=== PATIENT | male | born 1960 | race Caucasian/White ===

== ENCOUNTER 2022-01-26 14:32 | Inpatient (IN) | payer MEDICARE, OTHER ==
[~2022-01-26] VITALS: Ht 167.6 cm; Wt 81.6 kg
--- NOTE | 2022-01-26 15:03 | NUR ---
CHELSIE FROM [facility] FOR AGITATION. PT AAOX2, VSS. RR EVEN & UNLABORED. CALM & COOPERATIVE AT THIS TIME. PT SEEN & EVAL'D BY DR. MEAD. ANJELICA AT & WILL CONT TO MONITOR.
--- NOTE | 2022-01-26 15:40 | NUR ---
COVID SWAB DONE AND SENT TO LAB
[2022-01-26 16:17] LABS: BILIRUBIN,URINE NEGATIVE (NEGATIVE); COLOR,URINE YELLOW (YELLOW); LEUKOCYTE ESTERASE ,URINE NEGATIVE (NEGATIVE); NITRITE, URINE NEGATIVE (NEGATIVE); PROTEIN,URINE NEGATIVE (NEGATIVE); UGLUCOSE NEGATIVE (NEGATIVE); UROBILINOGEN,URINE 0.2 EU/dL (0.2)
[2022-01-26 16:56] LABS: BASOPHILS % (AUTO) 0.4 % (0.0-2.0); EOSINOPHILS % (AUTO) 1.1 % (0.0-6.0); HEMATOCRIT 46 % (39-51); HEMOGLOBIN 15.5 g/dL (13.5-17.5); LYMPHOCYTES # (AUTO) 1.3 K/uL (0.8-4.8); LYMPHOCYTES % (AUTO) 15.1 % (20.0-44.0); MEAN CORPUSCULAR HGB CONC 34 g/dl (31.0-36.0); MEAN CORPUSCULAR VOLUME 87 fL (80-96); MONOCYTES # (AUTO) 0.8 K/uL (0.1-1.30); MONOCYTES % (AUTO) 8.9 % (2.0-12.0); NEUTROPHILS # (AUTO) 6.5 K/uL (1.8-8.9); NEUTROPHILS % (AUTO) 74.5 % (43.0-81.0); PLATELET COUNT (AUTO) 153 K/uL (150-450); RED BLOOD CELL COUNT(AUTO) 5.32 MIL/uL (4.5-6.0); WHITE BLOOD COUNT (AUTO) 8.7 K/uL (4.3-11.0)
[2022-01-26 17:13] LABS: CALCIUM, SERUM 8.3 mg/dL (8.5-10.1); CARBON DIOXIDE 29 mmol/L (21-32); CHLORIDE 99 mmol/L (98-107); CREATININE 0.7 mg/dL (0.6-1.3); GLUCOSE 95 mg/dL (74-106); POTASSIUM 4.1 mmol/L (3.5-5.1); SODIUM SERUM 134 mmol/L (136-145); UREA NITROGEN, BLOOD 9 mg/dL (7-18)
[2022-01-26 17:19] LABS: ALANINE AMINOTRANSFERASE 19 U/L (12-78); ALBUMIN 3.3 g/dL (3.4-5.0); ALCOHOL, BLOOD < 3 mg/dL (0-0); ALKALINE PHOSPHATASE 79 U/L (46-116); ASPARTATE AMINOTRANSFERASE 16 U/L (15-37); BILIRUBIN,DIRECT 0.1 mg/dL (0.0-0.2); BILIRUBIN,TOTAL 0.4 mg/dL (0.2-1.0); TOTAL PROTEIN, SERUM 6.3 g/dL (6.4-8.2)
--- NOTE | 2022-01-26 18:35 | NUR ---
BED 212-A
--- NOTE | 2022-01-26 18:45 | NUR ---
REPORT GIVEN TO EMORY PANDYA FOR MEKA
--- NOTE | 2022-01-26 19:18 | NUR ---
PER LAB JOSE MANUEL COVID RESULT IS NEGATIVE, NURSE SUP MEMO AWARE
[2022-01-26] MEDS ORDERED: ACETAMINOPHEN 325 MG TABLET PO PRN (20:00)
[2022-01-26] MEDS ORDERED: ZOLPIDEM TARTRATE 5 MG TABLET PO PRN (20:00)
[2022-01-26] MEDS ORDERED: MAGNESIUM HYDROXIDE 30 ML UDC PO PRN (20:00)
[2022-01-26] MEDS ORDERED: MAG HYDROX/AL HYDROX/SIMETH 30 ML UDC PO PRN (20:00)
--- NOTE | 2022-01-26 20:01 | NUR ---
RN NOTES: REFUSED SKIN ASSESSMENT, AND REFUSED ACCU CHECK PT. REFUSED SKIN ASSESSMENT DUE TO UNCOOPERTIVE, AGGRESSIVE, NON REDIRECTABLE, ENCOURAGED X 3 PT. STRONGLY REFUSED, PER PT. STATED MY SKIN IS FINE , AND LIVE ME ALONE. PT. REUSED ACCU CHECK PT. REFUSED ACCU CHECK DUE TO UNCOOPERTIVE, AGGRESSIVE, NON REDIRECTABLE, ENCOURAGED X 3 PT. STRONGLY REFUSED, PER PT. MY BLOOD BS IS FINE, NO NEEDS TO BE CHECK , AND LIVE ME ALONE. Addendum: 01/27/22 at 0005 by CHRISTIANO IQBAL RN CORRECTION NOTES : PT. REFUSED SKIN ASSESSMENT, AND REFUSED ACCU CHECK PT. REFUSED SKIN ASSESSMENT DUE TO UNCOOPERTIVE, AGGRESSIVE, NON REDIRECTABLE, ENCOURAGED X 3 PT. STRONGLY REFUSED, PER PT. STATED MY SKIN IS FINE , AND LEAVE ME ALONE. PT. REUSED ACCU CHECK CORRECTION NOTE: PT. REFUSED ACCU CHECK DUE TO UNCOOPERTIVE, AGGRESSIVE, NON REDIRECTABLE, ENCOURAGED X 3 PT. STRONGLY REFUSED, PER PT. MY BLOOD BS IS FINE, NO NEEDS TO BE CHECK , AND LEAVE ME ALONE.
[2022-01-26] MEDS ORDERED: BLOOD SUGAR DIAGNOSTIC 1 EACH STRIP IN ONE (21:00)
[2022-01-26] MEDS: LORAZEPAM 1 MG TABLET PO PRN (21:10)
--- NOTE | 2022-01-26 21:12 | NUR ---
RN NOTES ANXIETY PT. C/O FEELING ANXIOUS, PACING IN HALLWAY , PARANOID , UNCOOPERTIVE ,PRN ATIVAN 1 MG PO GIVEN PER PT. REQUEST, WILL CONTINUE TO MONITOR.
[2022-01-26 22:00] VITALS: BP 123/76
[2022-01-26] MEDS ORDERED: DOCU-141 PO (22:46)
[2022-01-26] MEDS ORDERED: CHOL100062 PO (22:47)
[2022-01-26] MEDS ORDERED: DIVA500T54 PO (22:48)
[2022-01-26] MEDS ORDERED: MULT-754 PO (22:49)
[2022-01-26] MEDS ORDERED: VENL37.55 PO (22:50)
[2022-01-26] MEDS ORDERED: GABA-532 PO (22:52)
[2022-01-26] MEDS ORDERED: ARIP10TA9 PO (22:54)
--- NOTE | 2022-01-26 23:57 | NUR ---
RN NOTES : ADMISSION NOTES: ADMITTED THIS 61Y/O MALE PATIENT ADMIT FROM [facility] , INITIALLY FROM [facility] /INTIALLY FROM [facility] . ADMITTED TO 5150 HOLD PER HOLD GRAVELY DISABLE , DUE TO AGGRESSIVE BEHAVIOR AND NON COMPLIANT WITH CARE, UPON FACE TO FACE ASSESSMENT PATIENT IS A&O 2, ANXIOUS, DEPRESSED ,EASILY AGITATED , CONFUSED ,DISORGNIZED, DISHELVED, BLUNTED, FLAT ,NON-CONGRUENT UNCOOPERTIVE,POOR DECISION MAKING,DENIES SI /HI AT THIS TIME, PT. IS POOR HISTORIAN, POOR INSIGHT ,POOR JUDGEMENT , BOTH MD AWARE AND NOTIFIED OF THE ADMISSION, BELONGINGS CONTRABAND WERE DONE , PT. REFUSED SIGNS ADMISSION CONSENT PAPER DUE TO ANXIOUS,CONFUSED ,ENCOURAGED PT. TO TAKE SHOWER, REFUSED SKIN ASSESSMENT AND BLOOD SUGAR CHECK ,ENCOURAGED X3 BUT PT. STRONGLY REFUSED, PT. RIGHTS DISCUSS BY IMPORT CLERK , PROVIDE THE PT. WITH HANDBOOK, AND MEDICATIONS GUIDE, ENVIRONMENTAL SAFETY CHECK DONE, ENCOURAGED PT. VERBALIZED ANY FEELING CONCERN TO STAFF, ORIENT TO UNIT POLICY, NO ACUTE DISTRESS NOTED,VITAL SIGNS WNL ,DENIES ANY PAIN AT THIS TIME,WILL CONTINUE TO MONITOR FOR Q15 SAFETY AND BEHAVIOR.
[2022-01-27] MEDS: DOCUSATE SODIUM 100 MG CAPSULE PO SCH (08:36)
[2022-01-27] MEDS: MULTIVITAMINS,THERAGRAN 1 UDTAB TABLET PO SCH (08:37)
[2022-01-27] MEDS: NICOTINE PATCH (21MG) 21 MG PATCH.TD24 TD SCH (08:37)
[2022-01-27] MEDS: CHOLECALCIFEROL 1,000 UNIT TABLET (VIT D3) PO SCH (08:37)
[2022-01-27] MEDS ORDERED: GABAPENTIN 300 MG CAPSULE PO SCH (09:00)
--- NOTE | 2022-01-27 10:07 | NUR ---
Treatment Plan: Pt refused to sign treatment plan and appeared angry.
--- NOTE | 2022-01-27 10:07 | NUR ---
GALINA Clinical Note: Pt placed on a 5150 hold for GD. Per hold, pt was aggressive at his facility and was non-complaint with care. Pt currently resides at [facility], located at [address] [place] [address] ([phone]). GALINA contacted Shiloh fox from [place] who stated that pt is welcomed back. Pt does not have any supportive contact at this time.
--- NOTE | 2022-01-27 10:07 | NUR ---
GALINA Initial Discharge Plan: Pt currently resides at [facility], located at [place] [address] ([phone]). GALINA contacted Shiloh fox from [place] who stated that pt is welcomed back. Pt does not have any supportive contact at this time. GALINA will work with the MD and pt to help coordinate appropriate discharge.
[2022-01-27] MEDS: GABAPENTIN 300 MG CAPSULE PO SCH ×3 (10:30→17:00)
[2022-01-27] MEDS: OLANZAPINE ZYDIS 5 MG TAB.RAPDIS PO SCH ×2 (10:30→17:00)
[2022-01-27] MEDS: DIVALPROEX SODIUM 250 MG TABLET.DR PO SCH ×2 (13:00→17:00)
--- NOTE | 2022-01-27 17:16 | NUR ---
GPS/RN PT REFUSED ALL PO MEDS TODAY OFFERED ON NUMEROUS OCCASIONS. FIXATED ON SMOKING, REFUSED NICOTIN PATCH WELL
--- NOTE | 2022-01-27 19:30 | NUR ---
GPS RN NOTE, RECEIVED PATIENT AWAKE AND IN BED, NO S/S OR COMPLAINTS OF PAIN AT THIS TIME. PATIENT IS DISPLAYING NO S/S OF APPARENT DISTRESS AT THIS TIME. PATIENT BREATHING IS UNLABORED WITH EQUAL RISE AND FALL OF THE CHEST. PATIENT IS ALERT AND ORIENTED X 2-3 ON ROOM AIR. PATIENT IS REFUSING MEDICATIONS, UNPREDICTABLE, DISORGANIZED, FORGETFUL, AND UNCOOPERATIVE. PATIENT DENIES SUICIDAL AND HOMICIDAL IDEATIONS AT THIS TIME. PATIENT ASSISTED WITH TURNING AND REPOSITIONING Q2HR AND PRN FOR COMFORT AND CIRCULATION. PATIENT HAS NO NEEDS AT THIS TIME. PATIENT EDUCATED ON THE USE OF THE CALL SANCHEZ. PATIENT BED SIDE RAILS UP X 2 FOR SAFETY. PATIENT BED IS LOCKED, LOW, WITH BED ALARM ON. WILL CONTINUE TO MONITOR THIS PATIENT Q15 MINUTES WITH THE HELP OF STAFF TO MAINTAIN SAFETY.
[2022-01-28] MEDS: OLANZAPINE ZYDIS 5 MG TAB.RAPDIS PO SCH ×2 (08:03→16:09)
[2022-01-28] MEDS: DIVALPROEX SODIUM 250 MG TABLET.DR PO SCH ×3 (08:03→16:09)
[2022-01-28] MEDS: MULTIVITAMINS,THERAGRAN 1 UDTAB TABLET PO SCH (08:08)
[2022-01-28] MEDS: GABAPENTIN 300 MG CAPSULE PO SCH ×2 (08:08→11:59)
[2022-01-28] MEDS: CHOLECALCIFEROL 1,000 UNIT TABLET (VIT D3) PO SCH (08:08)
[2022-01-28] MEDS: NICOTINE PATCH (21MG) 21 MG PATCH.TD24 TD SCH (08:08)
[2022-01-28] MEDS: DOCUSATE SODIUM 100 MG CAPSULE PO SCH (08:08)
--- NOTE | 2022-01-28 09:00 | NUR ---
RN NOTE- PT ALERT ORIENTED TO PERSON PLACE, RESTLESS PACING POOR IMPULSE CONTROL, OPPOSITIONAL TO CARE, NOT REALLY DIRECTABLE, INTRUSIVE, TAKES FOOD AND DRINKS FROM OTHER PATIENTS, REDIRECTED, REPEATEDLY. TOOK ZYPREXA AND DEPAKOTE W DR DUNLAP AT BEDSIDE. REFUSED OTHER MEDS.
--- NOTE | 2022-01-28 11:20 | NUR ---
RN NOTE- PT W CONTINUED COUGH. LONG TIME SMOKER. PILOT MANAGER ROMAIN NOTIFIED. REQUESTED CXR AND ROBITUSSIN DM 5ML Q4H PRN. ORDERED
[2022-01-28] MEDS ORDERED: GUAIFENESIN/D-METHORPHAN HB 5 ML UDC PO PRN (12:00)
[2022-01-28] MEDS: GABAPENTIN 100 MG CAPSULE PO SCH (16:09)
--- NOTE | 2022-01-28 17:07 | NUR ---
RN NOTE- CXR UNREMARKABLE. NO ACUTE FINDINGS
[2022-01-28] MEDS: LORAZEPAM 1 MG TABLET PO PRN (20:23)
--- NOTE | 2022-01-28 20:23 | NUR ---
RN NOTES: ANXIETY PT. C/O FEELING ANXIOUS, PACING IN HALLWAY , PARANOID , UNCOOPERTIVE ,PRN ATIVAN 1 MG PO GIVEN PER PT. REQUEST, WILL CONTINUE TO MONITOR.
[2022-01-29 08:00] VITALS: BP 78/58
[2022-01-29] MEDS: DOCUSATE SODIUM 100 MG CAPSULE PO SCH (09:00)
[2022-01-29] MEDS: NICOTINE PATCH (21MG) 21 MG PATCH.TD24 TD SCH (09:00)
[2022-01-29] MEDS: MULTIVITAMINS,THERAGRAN 1 UDTAB TABLET PO SCH (09:00)
--- NOTE | 2022-01-29 09:00 | NUR ---
RN NOTE- NO REAL CHANGE PT ALERT ORIENTED TO PERSON PLACE, RESTLESS PACING POOR IMPULSE CONTROL, OPPOSITIONAL TO CARE, NOT REALLY DIRECTABLE, INTRUSIVE, TAKES FOOD AND DRINKS FROM OTHER PATIENTS, REDIRECTED, REPEATEDLY.
[2022-01-29] MEDS: DIVALPROEX SODIUM 250 MG TABLET.DR PO SCH ×3 (09:32→16:10)
[2022-01-29] MEDS: OLANZAPINE ZYDIS 5 MG TAB.RAPDIS PO SCH ×2 (09:32→16:10)
[2022-01-29] MEDS: CHOLECALCIFEROL 1,000 UNIT TABLET (VIT D3) PO SCH (09:32)
[2022-01-29] MEDS: GABAPENTIN 100 MG CAPSULE PO SCH ×3 (09:32→16:10)
--- NOTE | 2022-01-29 10:22 | NUR ---
RN NOTE- PT PROFANE, TAKING FOOD, POSTURING AGGRESSIVELY, THREATENING STAFF. DR DUNLAP ORDERED HALDOL 5 MG BENADRYL 25MG IM STAT
[2022-01-29] MEDS ORDERED: diphenhydrAMINE HCL 50 MG/ML VIAL IM ONE (10:30)
[2022-01-29] MEDS ORDERED: HALOPERIDOL LACTATE INJ 5 MG/ML VIAL IM ONE (10:30)
--- NOTE | 2022-01-29 12:00 | NUR ---
RN NOTE- PT CALMER THOUGH STILL PACING. HAD PT EAT LUNCH IN ROOM AND KEPT HIM THERE UNTIL TRAYS COLLECTED TO PREVENT HIM FROM TAKING OTHERS FOOD.
[2022-01-29] MEDS: LORAZEPAM 1 MG TABLET PO PRN (12:06)
--- NOTE | 2022-01-29 14:23 | NUR ---
RN NOTE- PT PACING CONTINUALLY ASKING FOR COFFEE, FOOD, CIGARETTES, DISRUPTIVE PERIODICALLY BECOMING PROFANE AND ANTAGONISTIC W FEMALE STAFF. MONITORING BEHAVIOR
--- NOTE | 2022-01-29 20:00 | NUR ---
RN NOTE PATIENT REFUSED SKIN ASSESSMENT.
[2022-01-30] MEDS: DIVALPROEX SODIUM 250 MG TABLET.DR PO SCH ×3 (08:30→16:16)
[2022-01-30] MEDS: GABAPENTIN 100 MG CAPSULE PO SCH ×3 (08:30→16:16)
[2022-01-30] MEDS: CHOLECALCIFEROL 1,000 UNIT TABLET (VIT D3) PO SCH (08:30)
[2022-01-30] MEDS: OLANZAPINE ZYDIS 5 MG TAB.RAPDIS PO SCH ×3 (08:30→16:16)
[2022-01-30] MEDS: MULTIVITAMINS,THERAGRAN 1 UDTAB TABLET PO SCH (08:30)
[2022-01-30] MEDS: DOCUSATE SODIUM 100 MG CAPSULE PO SCH (08:30)
[2022-01-30] MEDS: NICOTINE PATCH (21MG) 21 MG PATCH.TD24 TD SCH (08:41)
--- NOTE | 2022-01-30 13:00 | NUR ---
RN NOTE Patient noted to have non-productive cough, Davey Waggoner DNP notified and ordered CXR. Patient refused CXR, stated that if he's not allowed to smoke a cigarette, he will note do the CXR. Ordering Md notified.
--- NOTE | 2022-01-30 18:05 | NUR ---
RN NOTE Patient was reality oriented, encouraged to verbalize thoughts, feelings and needs with staff, importance of medication compliance, patient was invited to participate in group activities, to socialize with peers and staff, safe and therapeutic environment was provided. Patient kept pacing around and kept asking for juice and milk. Also would ask for extra food. Patient compliant with medication. Will continue to monitor until change of shift. Addendum: 01/31/22 at 1545 by DANIELLA QUIJANO RN WRONG CHARTING WRONG PATIENT
--- NOTE | 2022-01-31 08:30 | NUR ---
GPS RN NOTE Patient was reality oriented, encouraged to verbalize thoughts, feelings and needs with staff, importance of medication compliance, patient was not participate in group activities, to socialize with peers and staff, safe and therapeutic environment was provided. Patient kept asking about coffea and cream . Patient took medication with difficulty, have tendency to refused Meds and noncompliant with care. Will continue to monitor closely
[2022-01-31] MEDS: MULTIVITAMINS,THERAGRAN 1 UDTAB TABLET PO SCH (09:15)
[2022-01-31] MEDS: OLANZAPINE ZYDIS 5 MG TAB.RAPDIS PO SCH ×2 (09:15→16:16)
[2022-01-31] MEDS: DIVALPROEX SODIUM 250 MG TABLET.DR PO SCH ×3 (09:15→16:16)
[2022-01-31] MEDS: GABAPENTIN 100 MG CAPSULE PO SCH ×3 (09:15→16:16)
[2022-01-31] MEDS: NICOTINE PATCH (21MG) 21 MG PATCH.TD24 TD SCH (09:15)
[2022-01-31] MEDS: CHOLECALCIFEROL 1,000 UNIT TABLET (VIT D3) PO SCH (09:15)
[2022-01-31] MEDS: DOCUSATE SODIUM 100 MG CAPSULE PO SCH (09:15)
--- NOTE | 2022-01-31 14:26 | NUR ---
gps rn note strongly refused to do chest xay, will cont to encourage it
[2022-01-31 15:54] VITALS: BP 148/92
--- NOTE | 2022-01-31 18:34 | NUR ---
GPS RN NOTE RESTING COMFORTABLY IN BED , ALL NEEDS ATTENDED ,NOT IN DISTRESS AT THIS TIME
[2022-02-01 08:00] VITALS: BP 122/78
[2022-02-01] MEDS: NICOTINE PATCH (21MG) 21 MG PATCH.TD24 TD SCH ×2 (09:00→09:19)
[2022-02-01] MEDS ORDERED: HALOPERIDOL LACTATE INJ 5 MG/ML VIAL IM ONE (09:00)
[2022-02-01] MEDS ORDERED: diphenhydrAMINE HCL 50 MG/ML VIAL IM ONE (09:10)
[2022-02-01] MEDS: MULTIVITAMINS,THERAGRAN 1 UDTAB TABLET PO SCH (09:19)
[2022-02-01] MEDS: DIVALPROEX SODIUM 250 MG TABLET.DR PO SCH ×3 (09:19→17:53)
[2022-02-01] MEDS: DOCUSATE SODIUM 100 MG CAPSULE PO SCH (09:19)
[2022-02-01] MEDS: GABAPENTIN 100 MG CAPSULE PO SCH ×3 (09:20→17:53)
[2022-02-01] MEDS: CHOLECALCIFEROL 1,000 UNIT TABLET (VIT D3) PO SCH (09:20)
--- NOTE | 2022-02-01 09:20 | NUR ---
NURSE NOTE: PT ANGRY, PARANOID, FOLLOWING DR CARRANZA. DR DUNLAP ORDERED HALDOL 5MG AND BENADRYL 25MG. PT REQUESTED THE INJECTION AND VOLUNTARILY ACCEPTED THE INJECTION. WILL CONT TO MONITOR.
[2022-02-01] MEDS: OLANZAPINE ZYDIS 5 MG TAB.RAPDIS PO SCH ×2 (09:31→17:54)
--- NOTE | 2022-02-01 10:00 | NUR ---
NURSE NOTE: PT CALM AT THIS TIME. BREATHING EVEN AND UNLABORED. HALDOL AND BENADRYL INJECTIONS EFFECTIVE AT THIS TIME. WILL CONT TO MONITOR.
--- NOTE | 2022-02-01 11:16 | NUR ---
SW Note: SW attempted to meet with pt to conduct brief therapy. Pt appeared to be verbally aggressive and this telegraphic typewriter operator chief was unable to conduct therapy at this time.
--- NOTE | 2022-02-01 11:16 | NUR ---
Social Work Note/Substance Abuse Intervention: Patient was provided with a brief substance abuse intervention and referred to [facility] ([phone]), [facility] ([phone]), and [facility] ([phone]) for smoking.
[2022-02-01] MEDS ORDERED: PHENYLEPHRINE/SHK LV/MO/PET,WH 30 GM TUBE RC PRN (19:00)
--- NOTE | 2022-02-01 19:00 | NUR ---
NURSE NOTE: PT HAD RECTAL BLEEDING, HEMORRHOID VISIBLE. DR JEREZ NOTIFIED AND ORDERED PREPARATION H AND MIRALAX. WILL CONT TO MONITOR.
[2022-02-01 20:07] VITALS: BP 136/96
[2022-02-01] MEDS: POLYETHYLENE GLYCOL 3350 17 GM POWD.PACK PO SCH (21:06)
[2022-02-02 08:00] VITALS: BP 124/74
[2022-02-02] MEDS: MULTIVITAMINS,THERAGRAN 1 UDTAB TABLET PO SCH (08:43)
[2022-02-02] MEDS: DOCUSATE SODIUM 100 MG CAPSULE PO SCH (08:43)
[2022-02-02] MEDS: DIVALPROEX SODIUM 250 MG TABLET.DR PO SCH ×3 (08:43→16:57)
[2022-02-02] MEDS: CHOLECALCIFEROL 1,000 UNIT TABLET (VIT D3) PO SCH (08:43)
[2022-02-02] MEDS: OLANZAPINE ZYDIS 5 MG TAB.RAPDIS PO SCH ×2 (08:44→16:57)
[2022-02-02] MEDS: GABAPENTIN 100 MG CAPSULE PO SCH ×3 (08:44→16:57)
--- NOTE | 2022-02-02 11:24 | NUR ---
Court Notification: Pt does not have any supportive contact to notify of [phone].
--- NOTE | 2022-02-02 14:31 | NUR ---
SW Court Hearing: Patient's court hearing for 7200 was today and it was upheld for GD.
[2022-02-02 16:00] VITALS: BP 130/75
--- NOTE | 2022-02-02 18:04 | NUR ---
RN-NOTES PATIENT VISIBLE IN THE UNIT,A/O X2, NOTED WITH EASILY ANGRY,DEMANDING AND NEEDY BEHAVIOR.SELECTIVE WITH MEDICATION . REFUSED NICOTINE PATCH DESPITE EXPLANATIONS RISK AND BENEFITS.AMBULATORY STEADY GAIT. ALL NEEDS ATTENDED AND ANTICIPATED.WILL CONT. MONITORING FOR SAFETY AND BEHAVIOR.WILL ENDORSE TO INCOMING NURSE FOR CONTINUITY OF CARE.
--- NOTE | 2022-02-02 19:30 | NUR ---
PATIENT RECEIVED ASLEEP, EASILY AWAKENED BY CALLING HIS NAME. A/O X2, NOTED WITH EASILY ANGRY,DEMANDING AND NEEDY BEHAVIOR. AMBULATORY STEADY GAIT. PROVIDED FOOD AND JUICE REQUESTED. WILL CONT MONITORING FOR SAFETY AND BEHAVIOR. WILL PLAN OF CARE.
[2022-02-02 20:11] VITALS: BP 112/76
[2022-02-02] MEDS: POLYETHYLENE GLYCOL 3350 17 GM POWD.PACK PO SCH (21:36)
--- NOTE | 2022-02-03 06:33 | NUR ---
PATIENT ASLEEP IN BED, EASILY AWAKENED BY CALLING HIS NAME. A/O X2, NOTED WITH EASILY ANGRY,DEMANDING AND NEEDY BEHAVIOR. AMBULATORY STEADY GAIT. PROVIDED FOOD AND JUICE REQUESTED. DUE MEDS GIVEN ORDERED. NEEDS ATTENDED. SAFETY MEASURES MAINTAINED. WILL ENDORSE TO NEXT SHIFT NURSE FOR CONTINUITY OF CARE.
[2022-02-03] MEDS: OLANZAPINE ZYDIS 5 MG TAB.RAPDIS PO SCH ×2 (08:28→16:10)
[2022-02-03] MEDS: DOCUSATE SODIUM 100 MG CAPSULE PO SCH (08:28)
[2022-02-03] MEDS: CHOLECALCIFEROL 1,000 UNIT TABLET (VIT D3) PO SCH (08:28)
[2022-02-03] MEDS: GABAPENTIN 100 MG CAPSULE PO SCH ×3 (08:28→16:10)
[2022-02-03] MEDS: MULTIVITAMINS,THERAGRAN 1 UDTAB TABLET PO SCH (08:28)
[2022-02-03] MEDS: DIVALPROEX SODIUM 250 MG TABLET.DR PO SCH ×3 (08:34→16:10)
[2022-02-03] MEDS: NICOTINE PATCH (21MG) 21 MG PATCH.TD24 TD SCH (08:34)
[2022-02-03] MEDS: LORAZEPAM 1 MG TABLET PO PRN (09:13)
--- NOTE | 2022-02-03 09:13 | NUR ---
RN-NOTES NOTED PATIENT WITH INTRUSIVE ,DEMANDING AND IRRITABLE BEHAVIOR. REDIRECTED AND ATIVAN 1MG P.O GIVEN PRN ORDER. WILL CONT. MONITORING FOR SAFETY AND BEHAVIOR.
--- NOTE | 2022-02-03 09:15 | NUR ---
RN-NOTES TOSHIA DE ANDA 500MG P.O WAS ALREADY ADMINISTERED AT 0834 AM BY THE REFINER OPERATOR.
--- NOTE | 2022-02-03 19:08 | NUR ---
RN-NOTES PATIENT VISIBLE IN THE UNIT,A/O X2, NOTED WITH EASILY ANGRY,DEMANDING AND NEEDY BEHAVIOR.SELECTIVE WITH MEDICATION . REFUSED NICOTINE PATCH DESPITE EXPLANATIONS RISK AND BENEFITS.FOCUS ON COFFEE AND SMOKING.NEEDS FREQUENT REDIRECTIONS .AMBULATORY STEADY GAIT. ALL NEEDS ATTENDED AND ANTICIPATED.WILL CONT. MONITORING FOR SAFETY AND BEHAVIOR.WILL ENDORSE TO INCOMING NURSE FOR CONTINUITY OF CARE.
--- NOTE | 2022-02-03 19:30 | NUR ---
GPS RN NOTE, RECEIVED PATIENT AWAKE AND IN BED, NO S/S OR COMPLAINTS OF PAIN AT THIS TIME. PATIENT IS DISPLAYING NO S/S OF APPARENT DISTRESS AT THIS TIME. PATIENT BREATHING IS UNLABORED WITH EQUAL RISE AND FALL OF THE CHEST. PATIENT IS ALERT AND ORIENTED X 2-3 ON ROOM AIR. PATIENT IS COMPLAINT MEDICATIONS, UNPREDICTABLE, DISORGANIZED, FORGETFUL, AND COOPERATIVE. PATIENT DENIES SUICIDAL AND HOMICIDAL IDEATIONS AT THIS TIME. PATIENT ASSISTED WITH TURNING AND REPOSITIONING Q2HR AND PRN FOR COMFORT AND CIRCULATION. PATIENT HAS NO NEEDS AT THIS TIME. PATIENT EDUCATED ON THE USE OF THE CALL SANCHEZ. PATIENT BED SIDE RAILS UP X 2 FOR SAFETY. PATIENT BED IS LOCKED, LOW, WITH BED ALARM ON. WILL CONTINUE TO MONITOR THIS PATIENT Q15 MINUTES WITH THE HELP OF STAFF TO MAINTAIN SAFETY.
[2022-02-03 20:00] VITALS: BP 154/109
[2022-02-03] MEDS: POLYETHYLENE GLYCOL 3350 17 GM POWD.PACK PO SCH (21:17)
--- NOTE | 2022-02-03 21:17 | NUR ---
GPS RN NOTE, PATIENT REFUSED MIRALAX 17 GM PO HS. OFFERED MIRALAX THREE TIMES AND STILL PATIENT REFUSED STATING, " NO LEAVE ME ALONE I DON'T WANT THAT MEDICATION ". EDUCATED PATIENT ON THE RISKS AND BENEFITS OF TAKING AND REFUSING MIRALAX. WILL CONTINUE TO MONITOR THIS PATIENT WITH THE HELP OF STAFF.
[2022-02-04] MEDS: DIVALPROEX SODIUM 250 MG TABLET.DR PO SCH (08:24)
[2022-02-04] MEDS: OLANZAPINE ZYDIS 5 MG TAB.RAPDIS PO SCH ×2 (08:24→16:19)
[2022-02-04] MEDS: DOCUSATE SODIUM 100 MG CAPSULE PO SCH (08:24)
[2022-02-04] MEDS: MULTIVITAMINS,THERAGRAN 1 UDTAB TABLET PO SCH (08:24)
[2022-02-04] MEDS: GABAPENTIN 100 MG CAPSULE PO SCH ×3 (08:24→16:18)
[2022-02-04] MEDS: CHOLECALCIFEROL 1,000 UNIT TABLET (VIT D3) PO SCH (08:24)
[2022-02-04] MEDS: NICOTINE PATCH (21MG) 21 MG PATCH.TD24 TD SCH (08:27)
--- NOTE | 2022-02-04 09:15 | NUR ---
RN Notes: Received pt. asleep in bed, breathing is even and unlabored. Ate 25% for breakfast and refused for v/s checked. Pt. is unkempt, disheveled and guarded upon approached. Pt refused Nicotine patch and compliant on the rest of the meds. Encouraged to verbalize feelings and motivated to take shower. Needs attended and will continue to monitor for safety.
--- NOTE | 2022-02-04 14:33 | NUR ---
Dr. Mcgill in the unit and changed the order of Depakote to Depakane 500 mg BID and to do Depakote level on Sunday.
[2022-02-04 16:00] VITALS: BP 133/88
[2022-02-04] MEDS: VALPROIC ACID 250 MG/5 ML UDC PO SCH (16:19)
[2022-02-04] MEDS: LORAZEPAM 1 MG TABLET PO PRN (19:38)
--- NOTE | 2022-02-04 19:39 | NUR ---
RN NOTES: PT. C/O FEELING RESTLESS , ANXIOUS , PARANOID, NONREDIRECTABLE PRN ATIVAN 1 MG PO GIVEN PER PT. REQUEST, WILL CONTINUE TO MONITOR.
[2022-02-04 20:00] VITALS: BP 128/74
--- NOTE | 2022-02-04 20:06 | NUR ---
RN NOTES: PT. AWAKE ALERT IN HIS ROOM, NO S/SX OF ACUTE DISTRESS NOTED, ANXIOUS, EASILY AGITATED, NEEDY ,INAPPROPRIATE ANSWER TO QUESTIONS, PARANOID, UNCOOPERTIVE GUARDED, NEEDS FREQUENT REDIRECTION, FOCUS ON FOOD. DENIES SI/HI AT THIS TIME.ENCOURAGE TO VERBALIZED ANY FEELING OR CONCERN, SAFETY MEASURES IN PLACE. WILL CONTINUE TO MONITOR Q15MIN ROUNDS FOR SAFETY AND BEHAVIOR.
[2022-02-04] MEDS: POLYETHYLENE GLYCOL 3350 17 GM POWD.PACK PO SCH (22:05)
[2022-02-05] MEDS: NICOTINE PATCH (21MG) 21 MG PATCH.TD24 TD SCH (08:19)
[2022-02-05] MEDS: MULTIVITAMINS,THERAGRAN 1 UDTAB TABLET PO SCH (08:22)
[2022-02-05] MEDS: DOCUSATE SODIUM 100 MG CAPSULE PO SCH (08:22)
[2022-02-05] MEDS: OLANZAPINE ZYDIS 5 MG TAB.RAPDIS PO SCH ×2 (08:22→16:10)
[2022-02-05] MEDS: CHOLECALCIFEROL 1,000 UNIT TABLET (VIT D3) PO SCH (08:22)
[2022-02-05] MEDS: GABAPENTIN 100 MG CAPSULE PO SCH ×3 (08:22→16:09)
[2022-02-05] MEDS: VALPROIC ACID 250 MG/5 ML UDC PO SCH ×2 (08:23→16:09)
[2022-02-05 16:00] VITALS: BP 147/95
[2022-02-05] MEDS: POLYETHYLENE GLYCOL 3350 17 GM POWD.PACK PO SCH (21:20)
--- NOTE | 2022-02-05 22:31 | NUR ---
GPS NOTE PT RECEIVED IN BED, AWAKE, A&O X2. NO S/S OF RESP DISTRESS, NO SOB OR COUGH, NON-LABORED AND EQUAL BREATHING. PT COMPLIANT WITH MEDICATIONS; COOPERATIVE. PT NOTED TO BE AMBULATORY WITH STEADY GAIT. PT APPEARS CALM AT THE MOMENT WITH NO SIGNS OF EMOTIONAL DISTRESS, BUT IS NEEDY AND CONSTANTLY ASKING FOR SNACKS/DRINKS. NEED MINIMAL ASSIST WITH ADL'S. ALL NEEDS ATTENDED AND ANTICIPATED. WILL CONTINUE TO MONITOR THROUGHOUT THE NIGHT Q15MIN FOR SAFETY AND BEHAVIOR.
--- NOTE | 2022-02-06 06:56 | NUR ---
GPS NOTE PT REMAINS IN BED, ASLEEP BUT EASILY AROUSABLE, A&O X2. NO S/S OF RESP DISTRESS, NO SOB OR COUGH, NON-LABORED AND EQUAL BREATHING. PT COMPLIANT WITH MEDICATIONS; COOPERATIVE. NO EMOTIONAL OUTBURSTS DURING THE NIGHT AND WAS CALM AND COOPERATIVE. CONTINUED TO BE NEEDY, ASKING FOR SNACKS/DRINKS. NEED MINIMAL ASSIST WITH ADL'S. ALL NEEDS ATTENDED. ALL DUE MEDS ADMINISTERED DURING THE NIGHT. WILL ENDORSE TO DAYSHIFT NURSE TO CONTINUE CARE.
[2022-02-06] MEDS: OLANZAPINE ZYDIS 5 MG TAB.RAPDIS PO SCH ×2 (08:56→17:27)
[2022-02-06] MEDS: NICOTINE PATCH (21MG) 21 MG PATCH.TD24 TD SCH (08:56)
[2022-02-06] MEDS: CHOLECALCIFEROL 1,000 UNIT TABLET (VIT D3) PO SCH (08:56)
[2022-02-06] MEDS: DOCUSATE SODIUM 100 MG CAPSULE PO SCH (08:56)
[2022-02-06] MEDS: GABAPENTIN 100 MG CAPSULE PO SCH ×3 (08:56→17:27)
[2022-02-06] MEDS: MULTIVITAMINS,THERAGRAN 1 UDTAB TABLET PO SCH (08:58)
[2022-02-06] MEDS: VALPROIC ACID 250 MG/5 ML UDC PO SCH ×2 (09:02→17:27)
[2022-02-06] MEDS: POLYETHYLENE GLYCOL 3350 17 GM POWD.PACK PO SCH (21:40)
[2022-02-07 08:00] VITALS: BP 109/59
[2022-02-07] MEDS: DOCUSATE SODIUM 100 MG CAPSULE PO SCH (08:56)
[2022-02-07] MEDS: GABAPENTIN 100 MG CAPSULE PO SCH ×3 (08:56→17:19)
[2022-02-07] MEDS: NICOTINE PATCH (21MG) 21 MG PATCH.TD24 TD SCH (08:56)
[2022-02-07] MEDS: OLANZAPINE ZYDIS 5 MG TAB.RAPDIS PO SCH ×2 (08:56→17:19)
[2022-02-07] MEDS: CHOLECALCIFEROL 1,000 UNIT TABLET (VIT D3) PO SCH (08:56)
[2022-02-07] MEDS: VALPROIC ACID 250 MG/5 ML UDC PO SCH ×2 (08:57→17:19)
[2022-02-07] MEDS: MULTIVITAMINS,THERAGRAN 1 UDTAB TABLET PO SCH (08:58)
[2022-02-07] MEDS: POLYETHYLENE GLYCOL 3350 17 GM POWD.PACK PO SCH (21:04)
[2022-02-08 08:00] VITALS: BP 110/79
--- NOTE | 2022-02-08 08:09 | NUR ---
GALINA EARLY DISCHARGE ENTRY (02/10/2022): Patient will be discharged to [facility] facility, [facility] located at [address] [place] [phone] ([phone]). Please arrange ambulance transportation at 1PM. organic lab worker spoke with Shiloh garciaer ([phone]), who stated patient will be accepted at the facility today. Patient does not have any supportive contact. Patient is alert and oriented x2 and is unable to plan for self-care. Patient denies any suicidal or homicidal ideation. Patient is aware and agreeable with discharge plans. Patient will follow-up at the facility with Dr. Johnson (psychiatrist) [address] [address]; ([phone]) and (Field Administrator) Dr. De [address] [facility] [id number], [place] [address]; ([phone]).
[2022-02-08] MEDS: DOCUSATE SODIUM 100 MG CAPSULE PO SCH (08:30)
[2022-02-08] MEDS: CHOLECALCIFEROL 1,000 UNIT TABLET (VIT D3) PO SCH (08:30)
[2022-02-08] MEDS: VALPROIC ACID 250 MG/5 ML UDC PO SCH ×2 (08:30→16:27)
[2022-02-08] MEDS: GABAPENTIN 100 MG CAPSULE PO SCH ×3 (08:30→16:28)
[2022-02-08] MEDS: NICOTINE PATCH (21MG) 21 MG PATCH.TD24 TD SCH (08:30)
[2022-02-08] MEDS: OLANZAPINE ZYDIS 5 MG TAB.RAPDIS PO SCH ×2 (08:31→16:28)
[2022-02-08] MEDS: MULTIVITAMINS,THERAGRAN 1 UDTAB TABLET PO SCH (08:31)
--- NOTE | 2022-02-08 11:52 | NUR ---
GILACO: PT REFUSED VPA.
[2022-02-08 16:00] VITALS: BP 119/81
[2022-02-08 20:04] VITALS: BP 135/90
[2022-02-08] MEDS: POLYETHYLENE GLYCOL 3350 17 GM POWD.PACK PO SCH (21:46)
[2022-02-09 08:00] VITALS: BP 162/79
[2022-02-09] MEDS: MULTIVITAMINS,THERAGRAN 1 UDTAB TABLET PO SCH (08:31)
[2022-02-09] MEDS: OLANZAPINE ZYDIS 5 MG TAB.RAPDIS PO SCH ×2 (08:31→16:29)
[2022-02-09] MEDS: CHOLECALCIFEROL 1,000 UNIT TABLET (VIT D3) PO SCH (08:31)
[2022-02-09] MEDS: VALPROIC ACID 250 MG/5 ML UDC PO SCH ×2 (08:31→16:29)
[2022-02-09] MEDS: DOCUSATE SODIUM 100 MG CAPSULE PO SCH (08:31)
[2022-02-09] MEDS: GABAPENTIN 100 MG CAPSULE PO SCH ×3 (08:31→16:29)
[2022-02-09] MEDS: NICOTINE PATCH (21MG) 21 MG PATCH.TD24 TD SCH (08:36)
[2022-02-09 09:46] VITALS: BP 133/71
--- NOTE | 2022-02-09 10:10 | NUR ---
RN Notes: Received pt. asleep in bed, breathing is even and unlabored. Ate 100% for breakfast, refused on Nicotine patch and compliant on meds and refused for v/s. Pt. is disheveled and unkempt and refused to take shower. Encouraged to verbalize feelings and motivated to attend group activity. Pt. isolates in the room, guarded upon approached. Needs attended and will continue to monitor for safety.
[2022-02-09] MEDS: POLYETHYLENE GLYCOL 3350 17 GM POWD.PACK PO SCH (21:51)
--- NOTE | 2022-02-10 08:26 | NUR ---
Dr. Johnson gave an order to d/c hold and [facility], to follow up with psych and medical doctors and to continue same meds including prn.
[2022-02-10] MEDS: VALPROIC ACID 250 MG/5 ML UDC PO SCH (08:43)
[2022-02-10] MEDS: GABAPENTIN 100 MG CAPSULE PO SCH ×2 (08:44→12:02)
[2022-02-10] MEDS: DOCUSATE SODIUM 100 MG CAPSULE PO SCH (08:44)
[2022-02-10] MEDS: OLANZAPINE ZYDIS 5 MG TAB.RAPDIS PO SCH (08:44)
[2022-02-10] MEDS: MULTIVITAMINS,THERAGRAN 1 UDTAB TABLET PO SCH (08:44)
[2022-02-10] MEDS: CHOLECALCIFEROL 1,000 UNIT TABLET (VIT D3) PO SCH (08:44)
[2022-02-10] MEDS: NICOTINE PATCH (21MG) 21 MG PATCH.TD24 TD SCH (08:45)
--- NOTE | 2022-02-10 10:30 | NUR ---
GPS/RN REPORT GIVEN TO ACCEPTING FACILITY/[facility] CHARGE NURSE ANNA PANDYA
--- NOTE | 2022-02-10 14:20 | NUR ---
GPS/RN PT LEFT VIA AMBULANCE TO [facility]. VSS NO SI/HI/AVH AT THE TIME OF DISCHARGE. PROPERTY RETURNED. EXIT CARE AND PRESCRIPTIONS PROVIDED. PT IS AMBULATORY.
== END 2022-02-10 14:20 | DRG 885 ==
LOC: ER 14:40 → GPS 18:40
PROVIDERS: ADMIT Psychiatry & Neurology Psychiatry; ATTEND Nurse Practitioner Acute Care
DX: F25.0 Schizoaffective disorder, bipolar type (principal); E87.1 Hypo-osmolality and hyponatremia; E44.1 Mild protein-calorie malnutrition; F29 Unspecified psychosis not due to a substance or known physiological condition; Z20.822 Contact with and (suspected) exposure to COVID-19; F03.90 Unspecified dementia, unspecified severity, without behavioral disturbance, psychotic disturbance, mood disturbance, and anxiety; J44.9 Chronic obstructive pulmonary disease, unspecified; Z73.6 Limitation of activities due to disability; E88.09 Other disorders of plasma-protein metabolism, not elsewhere classified; E55.9 Vitamin D deficiency, unspecified; M19.90 Unspecified osteoarthritis, unspecified site; F17.210 Nicotine dependence, cigarettes, uncomplicated
CPT/HCPCS: 36415; 71045-TC; 80048-TC; 80076-TC; 80164-TC; 85025-TC; 87081-TC; G0480; J1200; J1630

== ENCOUNTER 2022-07-14 16:25 | Inpatient (IN) | payer MEDICARE, OTHER ==
[~2022-07-14] VITALS: Ht 167.6 cm; Wt 72.1 kg
[~2022-07-14 16:25] MED LIST: CHOL100062 PO; DOCU-141 PO; GABA-532 PO; MULT-754 PO
[2022-07-14] MEDS ORDERED: DOCU-141 PO (19:03)
[2022-07-14] MEDS ORDERED: GABA-532 PO (19:03)
[2022-07-14] MEDS ORDERED: TYL2T PO (19:03)
[2022-07-14] MEDS ORDERED: ASCO-352 PO (19:03)
[2022-07-14] MEDS ORDERED: CLON0.5T PO (19:03)
[2022-07-14] MEDS ORDERED: VALP250S4 PO (19:03)
[2022-07-14] MEDS ORDERED: MULT-24 PO (19:03)
[2022-07-14] MEDS ORDERED: OLAN10TA3 PO (19:03)
[2022-07-14] MEDS ORDERED: ALBU18HF2 IH (19:03)
[2022-07-14] MEDS ORDERED: NA P133E RC (19:03)
[2022-07-14] MEDS ORDERED: TRAZ-257 PO (19:03)
[2022-07-14] MEDS ORDERED: ACET-868 PO ×2 (19:03)
[2022-07-14] MEDS ORDERED: MAGN400O6 PO (19:03)
[2022-07-14] MEDS ORDERED: BISA10SU11 RC (19:03)
[2022-07-14 19:17] LABS: BASOPHILS # (AUTO) 0.1 K/uL (0.0-0.2); BASOPHILS % (AUTO) 0.8 % (0.0-2.0); EOSINOPHILS % (AUTO) 1.7 % (0.0-6.0); HEMATOCRIT 51 % (39-51); HEMOGLOBIN 16.8 g/dL (13.5-17.5); LYMPHOCYTES # (AUTO) 1.4 K/uL (0.8-4.8); MEAN CORPUSCULAR HGB CONC 33 g/dl (31.0-36.0); MEAN CORPUSCULAR VOLUME 88 fL (80-96); MONOCYTES # (AUTO) 0.9 K/uL (0.1-1.30); MONOCYTES % (AUTO) 10.2 % (2.0-12.0); NEUTROPHILS # (AUTO) 6.6 K/uL (1.8-8.9); NEUTROPHILS % (AUTO) 72.3 % (43.0-81.0); PLATELET COUNT (AUTO) 166 K/uL (150-450); RED BLOOD CELL COUNT(AUTO) 5.81 MIL/uL (4.5-6.0); WHITE BLOOD COUNT (AUTO) 9.1 K/uL (4.3-11.0)
[2022-07-14] MEDS ORDERED: OLANZAPINE 10 MG VIAL IM ONE ×2 (19:19→19:30)
[2022-07-14 19:29] LABS: CALCIUM, SERUM 8.8 mg/dL (8.5-10.1); CARBON DIOXIDE 25 mmol/L (21-32); CHLORIDE 99 mmol/L (98-107); CREATININE 0.7 mg/dL (0.6-1.3); GLUCOSE 95 mg/dL (74-106); POTASSIUM 3.9 mmol/L (3.5-5.1); SODIUM SERUM 134 mmol/L (136-145); UREA NITROGEN, BLOOD 14 mg/dL (7-18)
[2022-07-14 19:30] LABS: SERUM AMMONIA 34 umol/L (11-32)
[2022-07-14] MEDS ORDERED: NICOTINE PATCH (21MG) 21 MG PATCH.TD24 TD SCH (19:30)
[2022-07-14 19:35] LABS: ALANINE AMINOTRANSFERASE 34 U/L (12-78); ALBUMIN 3.7 g/dL (3.4-5.0); ALCOHOL, BLOOD < 3 mg/dL (0-0); ALKALINE PHOSPHATASE 89 U/L (46-116); ASPARTATE AMINOTRANSFERASE 24 U/L (15-37); BILIRUBIN,DIRECT 0.1 mg/dL (0.0-0.2); BILIRUBIN,TOTAL 0.4 mg/dL (0.2-1.0)
--- NOTE | 2022-07-14 19:37 | NUR ---
Called Pharm, will deliver Nicotine patch
[2022-07-14 20:04] LABS: ACETAMINOPHEN < 10 ug/ml (10-30); ALCOHOL, BLOOD < 3 mg/dL (0-0)
--- NOTE | 2022-07-14 20:22 | NUR ---
URINE SPECIMEN COLLECTED AND SENT TO LAB.
[2022-07-14 20:23] LABS: BILIRUBIN,URINE NEGATIVE (NEGATIVE); COLOR,URINE YELLOW (YELLOW); LEUKOCYTE ESTERASE ,URINE NEGATIVE (NEGATIVE); NITRITE, URINE NEGATIVE (NEGATIVE); PH,URINE 7.5 (5.0-8.0); PROTEIN,URINE NEGATIVE (NEGATIVE); UGLUCOSE NEGATIVE (NEGATIVE); UROBILINOGEN,URINE 0.2 EU/dL (0.2)
[2022-07-14 20:26] LABS: THYROID STIMULATING HORMONE 2.129 uIU/mL (0.358-3.74)
--- NOTE | 2022-07-14 20:28 | NUR ---
COVID Swab collected, sent to lab
--- NOTE | 2022-07-14 21:12 | NUR ---
Pt requesting food, per ok to eat
[2022-07-14] MEDS ORDERED: ACETAMINOPHEN 325 MG TABLET PO PRN ×4 (21:30)
[2022-07-14] MEDS ORDERED: MAGNESIUM HYDROXIDE 30 ML UDC PO PRN ×2 (21:30)
[2022-07-14] MEDS ORDERED: MAG HYDROX/AL HYDROX/SIMETH 30 ML UDC PO PRN (21:30)
[2022-07-14] MEDS ORDERED: IV NS 0.9% 1,000 ML IV PRN (21:30)
[2022-07-14] MEDS ORDERED: ONDANSETRON HCL/PF 4 MG/2 ML VIAL IVP PRN (21:30)
[2022-07-14] MEDS ORDERED: ZOLPIDEM TARTRATE 5 MG TABLET PO PRN (21:30)
[2022-07-14] MEDS ORDERED: BISACODYL SUPP (10 MG) 10 MG/SUPP.RECT SUPP.RECT RC PRN (21:30)
[2022-07-14] MEDS ORDERED: Z GUARD REMEDY 4 OZ OINT TP PRN (21:30)
--- NOTE | 2022-07-14 22:00 | NUR ---
MS RN NOTES DUE TRAZODONE 100MG PO GIVEN ORDERED.
--- NOTE | 2022-07-14 22:06 | NUR ---
Report given to RN/Jenn, [facility]
[2022-07-14 22:15] VITALS: BP 138/86
--- NOTE | 2022-07-14 22:15 | NUR ---
MS FIELD SEISMOLOGIST NOTES RECEIVED FROM ER THIS 62 YO MALE,A RESIDENT OF ALF FACILITY,ALERT,ORIENTED X1,ABLE TO STATE HIS NAME,DONT KNOW WHERE HE WAS.REFUSED BODY CHECK,AMBULATE WITH STEADY GAIT.SALINE LOCK RIGHT HAND INTACT AND PATENT.WILL CONTINUE TO MONITOR STATUS.CALL LIGHT IN REACH,NEEDS ANTICIPATED.
[2022-07-14] MEDS: TRAZODONE 50 MG TABLET PO SCH (22:35)
--- NOTE | 2022-07-15 00:40 | NUR ---
MS RN NOTES OFFERED TO START ON IVF BUT REFUSED.
--- NOTE | 2022-07-15 06:15 | NUR ---
REHABILITATION COORDINATOR NOTES REFUSED BLOOD DRAW THIS MORNING
--- NOTE | 2022-07-15 06:37 | NUR ---
MS RN NOTES SLEEP WELL AT NIGHT,STILL REFUSED IV FLUIDS AND BLOOD DRAW,CONFUSED FORGETFULL,EASILY GETS AGITATED,AWAITING PSYCHE CONSULT.WILL ENDORSE TO DAY NURSE FOR MEKA.
[2022-07-15] MEDS ORDERED: ALBUTEROL FS 2.5 MG/3 ML VIAL.NEB NEB PRN (07:00)
--- NOTE | 2022-07-15 07:31 | NUR ---
MS RN OPENING NOTES Received pt in bed, awake, ambulatory. A/O x 1, able to make needs known. No c/o pain/discomfort at this time. On room air, tolerating well. IV access in right hand #20g, sl. Safety measures in place: bed in lowest locked position, side rails up x 2, call light and tray table within easy reach. Will continue to monitor.
[2022-07-15 08:00] VITALS: BP 152/71
[2022-07-15] MEDS: clonazePAM 0.5 MG TABLET PO SCH ×2 (08:36→12:47)
[2022-07-15] MEDS: GABAPENTIN 100 MG CAPSULE PO SCH ×3 (08:37→16:33)
[2022-07-15] MEDS: VALPROIC ACID 250 MG/5 ML UDC PO SCH ×2 (08:37→16:33)
[2022-07-15] MEDS: ASCORBIC ACID 500 MG TABLET PO SCH (08:37)
[2022-07-15] MEDS: CHOLECALCIFEROL 1,000 UNIT TABLET (VIT D3) PO SCH (08:37)
[2022-07-15] MEDS: OLANZAPINE 10 MG TABLET PO SCH ×2 (08:37→16:33)
[2022-07-15] MEDS: NICOTINE PATCH (14MG) 14 MG PATCH.TD24 TD SCH ×2 (08:37→08:59)
[2022-07-15] MEDS: DOCUSATE SODIUM 100 MG CAPSULE PO SCH (08:37)
[2022-07-15] MEDS: MULTIVITAMINS,THERAGRAN 1 UDTAB TABLET PO SCH (08:37)
[2022-07-15] MEDS ORDERED: MULTIVITAMINS,THERAGRAN 1 UDTAB TABLET PO SCH (09:00)
--- NOTE | 2022-07-15 09:52 | NUR ---
RN NOTES Patient refused nicoderm patch despite teaching benefits.
[2022-07-15 16:00] VITALS: BP 133/82
--- NOTE | 2022-07-15 18:55 | NUR ---
MS RN CLOSING NOTES Pt resting in bed. A/O x 1, forgetful, able to make needs known. No c/o pain/discomfort within the shift. On room air, tolerated well. IV access in left hand #20g, sl. Pt refused body/skin check. Pt refused IV fluids. Needs attended. Safety measures in place: bed in lowest locked position, side rails up x 2, call light and tray table within easy reach. Will endorse cholo to rubber calender helper.
--- NOTE | 2022-07-15 19:15 | NUR ---
MS RN OPENING NOTE RECEIVED PATIENT FROM AM NURSE; PATIENT ASLEEP IN BED, A/O X 1 - 2, ENDORSED CONFUSED AND WITH EPISODE OF FORGETFULNESS; AMBULATORY AND REFUSED BODY ASSESSMENT; STABLE ON ROOM AIR, BREATHING EVENLY AND NO S/S OF DISTRESS NOTED; WITH IV ACCESS AT LEFT HAND G#20 SALINE LOCK; SAFETY MEASURES IMPLEMENTED, BED LOCKED IN LOW POSITION, SIDE RAILS UP X 2, CALL LIGHT AND TABLE WITHIN REACH; WILL CONTINUE TO MONITOR THROUGHOUT SHIFT
[2022-07-15 20:00] VITALS: BP 122/85
[2022-07-15] MEDS: TRAZODONE 50 MG TABLET PO SCH (21:01)
--- NOTE | 2022-07-16 06:56 | NUR ---
MS RN CLOSING NOTE PATIENT ASLEEP IN BED, A/O X 1 - 2, CONFUSED AND WITH EPISODES OF FORGETFULNESS; AMBULATORY AND REFUSED BODY ASSESSMENT; WAS ABLE TO HAVE CONTINUOUS SLEEP; STABLE ON ROOM AIR, BREATHING EVENLY AND NO S/S OF DISTRESS NOTED; NO COMPLAINTS OF PAIN AND DISCOMFORT AT THIS TIME; WITH IV ACCESS AT LEFT HAND G#20 SALINE LOCK; ADMINISTERED MEDICATIONS PRESCRIBED; PATIENT'S NEEDS ATTENDED; MONITORED PATIENT ACCORDINGLY; SAFETY MEASURES IMPLEMENTED, BED LOCKED IN LOW POSITION, SIDE RAILS UP X 2, CALL LIGHT AND TABLE WITHIN REACH; WILL ENDORSE TO AM NURSE FOR MEKA.
--- NOTE | 2022-07-16 07:06 | NUR ---
MS RN OPENING NOTE (DAY SHIFT) Received pt in bed, asleep, easily aroused, A/O x 1, able to make needs known. No c/o pain/discomfort at this time. On room air, tolerating well. IV access in right hand #20g, sl. Patient continuing to refuse IV fluids. Safety measures in place: bed in lowest locked position, side rails up x 2, call light and tray table within easy reach. Will continue to monitor and care for patient per hospitalist's POC.
[2022-07-16 08:00] VITALS: BP 135/100
[2022-07-16] MEDS: DOCUSATE SODIUM 100 MG CAPSULE PO SCH (08:23)
[2022-07-16] MEDS: ASCORBIC ACID 500 MG TABLET PO SCH (08:24)
[2022-07-16] MEDS: MULTIVITAMINS,THERAGRAN 1 UDTAB TABLET PO SCH (08:24)
[2022-07-16] MEDS: VALPROIC ACID 250 MG/5 ML UDC PO SCH ×2 (08:24→17:03)
[2022-07-16] MEDS: OLANZAPINE 10 MG TABLET PO SCH ×2 (08:24→17:03)
[2022-07-16] MEDS: NICOTINE PATCH (14MG) 14 MG PATCH.TD24 TD SCH (08:25)
[2022-07-16] MEDS: clonazePAM 0.5 MG TABLET PO PRN (08:25)
[2022-07-16] MEDS: GABAPENTIN 100 MG CAPSULE PO SCH ×3 (08:32→17:03)
[2022-07-16] MEDS: CHOLECALCIFEROL 1,000 UNIT TABLET (VIT D3) PO SCH (11:12)
[2022-07-16 16:00] VITALS: BP 140/85
--- NOTE | 2022-07-16 19:30 | NUR ---
MS RN OPENING NOTE RECEIVED PATIENT, PACING AROUND THE UNIT. ALERT AND ORIENTED X1-2 WITH FORGETFUL. AFEBRILE AND NOT IN ANY FORM OF ACUTE DISTRESS. BREATHING EVEN AND NON LABORED. PATIENT WANTS TO GO OUTSIDE TO SMOKE, INFORMED HIM THAT THIS IS A NON-SMOKING FACILITY AND A NICOTINE PATCH IS ALREADY APPLIED. SAFETY MEASURES IN PLACE. KEPT BED IN LOCKED AND IN LOW POSITION. SIDE RAILS UP X2. ADVISED TO USE THE CALL LIGHT WHEN IN NEED OF ASSISTANCE.
[2022-07-16 20:00] VITALS: BP 148/104
--- NOTE | 2022-07-16 20:09 | NUR ---
MS RN CLOSING NOTES Pt resting in bed. A/O x 1, forgetful, able to make needs known. No c/o pain/discomfort within the shift. On room air, tolerated well. IV access in left hand #20g, sl. Pt refused body/skin check. Pt refused IV fluids. Needs attended. Safety measures in place: bed in lowest locked position, side rails up x 2, call light and tray table within easy reach. No new neuro deficits detected on neuro checks. Will endorse to manager shift nurse for MEKA.
[2022-07-16] MEDS: TRAZODONE 50 MG TABLET PO SCH (21:43)
--- NOTE | 2022-07-17 05:57 | NUR ---
MS RN NOTE PATIENT REFUSED BLOOD DRAW DESPITE EXPLAINING IMPORTANCE OF THE TEST. PATIENT HAS BEEN REFUSING LABS FOR SEVERAL DAYS PER REPORT. LAST RESULT WAS ON 07/14/22.
--- NOTE | 2022-07-17 06:23 | NUR ---
MS RN CLOSING NOTE PATIENT IN BED, ASLEEP BUT EASY TO AROUSE AND RESPONSIVE. ABLE TO MAKE NEEDS KNOWN. AFEBRILE AND NOT IN ANY FORM OF ACUTE DISTRESS. BREATHING EVEN AND NON LABORED. NO CHANGES IN MENTATION THROUGHOUT THE SHIFT. WITH IV ACCESS ON LEFT HAND 20G-SL. MEDICATED ORDERED. SAFETY MEASURES IN PLACE. KEPT BED IN LOCKED AND IN LOW POSITION. SIDE RAILS UP. ADVISED TO USE THE CALL LIGHT WHEN IN NEED OF ASSISTANCE. CONSTANT VISUAL CHECK DONE TO ENSURE SAFETY. ALL NURSING NEEDS ATTENDED. ENDORSED TO INCOMING SHIFT FOR CONTINUITY OF CARE.
[2022-07-17 07:00] VITALS: BP 101/66
--- NOTE | 2022-07-17 07:30 | NUR ---
OPENING NOTE PATIENT RECEIVED ASLEEP WITH VISIBLE CHEST EXTENSION, RESPONSIVE TO VERBAL/ LIGHT TOUCH STIMULI, A/OX2, ON ROOM AIR, BREATHING EVEN AND UNLABORED, NO S/S OF DISTRESSED OR SOB NOTED. NO S/S OF PAIN OR COMPLAINTS OF PAIN. IV ACCESS L HAND G#20, INTACT AND PATENT, FLUSHING WELL. PATIENT IS AMBULATORY, BRP. REASSESSMENT OF SKIN, LUNG, AND BOWEL SOUNDS WERE REFUSED. FALL AND SAFETY PRECAUTION IN PLACE: BED ALARM ON, BED LOCKED AND AT THE LOWEST POSITION. SRX2, CALL LIGHT WITHIN REACH.
[2022-07-17] MEDS: OLANZAPINE 10 MG TABLET PO SCH ×2 (09:00→16:18)
[2022-07-17] MEDS: GABAPENTIN 100 MG CAPSULE PO SCH ×3 (09:00→16:18)
[2022-07-17] MEDS: DOCUSATE SODIUM 100 MG CAPSULE PO SCH (09:00)
[2022-07-17] MEDS: MULTIVITAMINS,THERAGRAN 1 UDTAB TABLET PO SCH (09:00)
[2022-07-17] MEDS: ASCORBIC ACID 500 MG TABLET PO SCH (09:00)
[2022-07-17] MEDS: NICOTINE PATCH (14MG) 14 MG PATCH.TD24 TD SCH (09:00)
[2022-07-17] MEDS: CHOLECALCIFEROL 1,000 UNIT TABLET (VIT D3) PO SCH (09:00)
[2022-07-17] MEDS: VALPROIC ACID 250 MG/5 ML UDC PO SCH ×2 (09:00→16:18)
--- NOTE | 2022-07-17 09:09 | NUR ---
MEDICATION NOTE PATIENT IS REFUSING ALL MEDICATION. SEVERAL ATTEMPTS WERE MADE. EXPLAINED BENEFITS AND THE IMPORTANCE OF FOLLOWING THE MEDICATION REGIME. PATIENT CONTINUED TO REFUSE.
--- NOTE | 2022-07-17 14:01 | NUR ---
MEDICATION NOTE PATIENT IS REFUSING MEDICATION. SEVERAL ATTEMPTS WERE MADE. EXPLAINED BENEFITS AND THE IMPORTANCE OF FOLLOWING THE MEDICATION REGIME. PATIENT CONTINUED TO REFUSE.
[2022-07-17 16:00] VITALS: BP 160/104
[2022-07-17] MEDS: clonazePAM 0.5 MG TABLET PO PRN (17:37)
--- NOTE | 2022-07-17 19:02 | NUR ---
CLOSING NOTE PATIENT IS SLEEPING WITH VISIBLE CHEST EXTENSION, A/OX2 FORGETFUL, ON ROOM AIR, BREATHING EVEN AND UNLABORED, NO S/S OF DISTRESSED OR SOB NOTED. NO S/S OF PAIN OR COMPLAINTS OF PAIN. IV ACCESS L HAND G#20, REMAINS INTACT AND PATENT, FLUSHING WELL. PATIENT REFUSED ALL REGIME CARE INCLUDING LABS AND AM/ NOON SCHEDULED MEDICATION. PM MEDICATION ADMINISTERED ORDERED. MD WAS NOTIFIED OF REFUSED CARE. FALL AND SAFETY PRECAUTION MAINTAINED: BED ALARM ON, BED LOCKED AND AT THE LOWEST POSITION. SRX2, CALL LIGHT WITHIN REACH.
--- NOTE | 2022-07-17 19:30 | NUR ---
MS RN OPENING NOTE RECEIVED PATIENT RESTING IN BED, VERBALLY RESPONSIVE. A/O X1-2 WITH FORGETFUL. PT STABLE ON ROOM AIR. NO SOB OR S/S OF RESPIRATORY DISTRESS. BREATHING EVEN AND NONLABORED. IV ACCESS L HAND 20G, INTACT AND PATENT. SAFETY PRECAUTIONS IN PLACE. BED IN LOWEST LOCKED POSITION, HOB ELEVATED, SIDE RAILS UP X2, AND CALL LIGHT AND TABLE WITHIN REACH. ALL NEEDS MET AT THIS TIME.
--- NOTE | 2022-07-17 20:23 | NUR ---
RN NOTE SEEN BY CRISIS AGRICULTURAL PRODUCE SORTER CATERINA AT THIS TIME WITH 72 H[address] HOLD NOW IN PLACE. CHARGE NURSE DANIELLE ARMSTRONG. PT TO BE DISCHARGED TO [facility] ROOM 220B.
--- NOTE | 2022-07-17 21:40 | NUR ---
POWDER TRUCK DRIVER NOTE WALKED PT DOWN TO [facility] ROOM 220B. BEDSIDE REPORT GIVEN TO NOVEM RN. MEDICALLY STABLE AT THIS TIME. VSS. IV ACCESS REMOVED, PRESSURE APPLIED WITH GAUZE, AND TAPED DOWN. PT BELONGINGS ACCOUNTED FOR AND BROUGHT DOWN WITH THE PT, BELONGINGS LIST SIGNED. PT PROVIDED DISCHARGE PAPERWORK AND ORIGINAL HOLD ORDER. CHARGE NURSE DANIELLE ARMSTRONG. AWARE.
[2022-07-17] MEDS ORDERED: ALBUT2 NEB (22:35)
[2022-07-17] MEDS ORDERED: NICO-762 TD (22:35)
[2022-07-18] MEDS ORDERED: ALLA266C2 TP (09:47)
[2022-07-18] MEDS ORDERED: ZOLP5TAB8 PO (09:47)
[2022-07-18] MEDS ORDERED: MAG30ORA PO (09:47)
== END 2022-07-17 21:33 | DRG 72 ==
LOC: ER 16:30 → MED 21:30
PROVIDERS: ADMIT Nurse Practitioner Acute Care; ATTEND Student in an Organized Health Care Education/Training Program
DX: G93.41 Metabolic encephalopathy (principal); J44.9 Chronic obstructive pulmonary disease, unspecified; F25.0 Schizoaffective disorder, bipolar type; Z20.822 Contact with and (suspected) exposure to COVID-19; I10 Essential (primary) hypertension; G62.9 Polyneuropathy, unspecified; E55.9 Vitamin D deficiency, unspecified; F29 Unspecified psychosis not due to a substance or known physiological condition; Z79.51 Long term (current) use of inhaled steroids; Z79.899 Other long term (current) drug therapy; F03.90 Unspecified dementia, unspecified severity, without behavioral disturbance, psychotic disturbance, mood disturbance, and anxiety; K21.9 Gastro-esophageal reflux disease without esophagitis; F41.9 Anxiety disorder, unspecified; F32.A Depression, unspecified; F17.210 Nicotine dependence, cigarettes, uncomplicated; G47.00 Insomnia, unspecified
CPT/HCPCS: 36415; 70450-TC; 71045-TC; 80048-TC; 80076-TC; 82140-TC; 82962-TC; 84443-TC; 85025-TC; 87081-TC; 97112-TC; 97116-TC; 97530-TC; A4223; G0378; G0480; J3490; J7030

== ENCOUNTER 2022-07-17 21:04 | Inpatient (IN) | payer MEDICARE, OTHER ==
[~2022-07-17] VITALS: Ht 167.6 cm; Wt 72.1 kg
[~2022-07-17 21:04] MED LIST changes: +ACET-868 PO; +ALBU18HF2 IH; +ASCO-352 PO; +BISA10SU11 RC; +CLON0.5T PO; +MAGN400O6 PO; +MULT-24 PO; +NA P133E RC; +OLAN10TA3 PO; +TRAZ-257 PO; +TYL2T PO; +VALP250S4 PO
[2022-07-17 21:40] VITALS: BP 151/92
--- NOTE | 2022-07-17 21:40 | NUR ---
CLIENT INSIGHTS CONSULTANT NOTES ADMITTED A 62-Y/O, MALE, [facility]. [facility] PT CAME FROM [facility]. ADMITTED ON A 5150 HOLD FOR GD. PER HOLD, PT. ADMITTED DUE TO CONFUSION. PT UNABLE TO PROVIDE A FEASIBLE PLAN OF SELF CARE. UPON FACE TO FACE EVALUATION, PATIENT IS ANXIOUS, CONFUSED, FORGETFUL, NEEDY BUT REDIRECTABLE, FOCUSED ON FOOD, AND EASILY GETS AGITATED/IRRITABLE. VERBALIZATION OF FEELINGS ENCOURAGED. SKIN ASSESSMENT DONE. SKIN INTACT. ALL BELONGINGS WERE CHECKED FOR CONTRABAND. PATIENT'S RIGHTS WERE DISCUSSED AND BOOKLET WAS GIVEN. CONTACTED DR. DUNLAP AND HOSPITALIST DR. CRONIN AND INFORMED THEM OF THE ADMISSION. WILL CONTINUE TO MONITOR THE PATIENT Q15 MINUTES FOR SAFETY.
--- NOTE | 2022-07-17 21:42 | NUR ---
RN NOTE DR. CRONIN NOTIFIED TO RECONCILE HOME MEDICATIONS.
[2022-07-17] MEDS ORDERED: ACETAMINOPHEN 325 MG TABLET PO PRN (22:00)
[2022-07-17] MEDS ORDERED: MAGNESIUM HYDROXIDE 30 ML UDC PO PRN (22:00)
[2022-07-17] MEDS ORDERED: MAG HYDROX/AL HYDROX/SIMETH 30 ML UDC PO PRN (22:00)
[2022-07-17] MEDS ORDERED: BLOOD SUGAR DIAGNOSTIC 1 EACH STRIP IN ONE (22:00)
[2022-07-17] MEDS ORDERED: NICO-762 TD (22:35)
[2022-07-17] MEDS ORDERED: ALBUT2 NEB (22:35)
[2022-07-18] MEDS ORDERED: ALBUTEROL FS 2.5 MG/3 ML VIAL.NEB NEB PRN (05:30)
[2022-07-18] MEDS ORDERED: Z GUARD REMEDY 4 OZ OINT TP PRN (06:00)
[2022-07-18] MEDS ORDERED: BISACODYL SUPP (10 MG) 10 MG/SUPP.RECT SUPP.RECT RC PRN (06:00)
[2022-07-18] MEDS ORDERED: clonazePAM 0.5 MG TABLET PO PRN (06:30)
--- NOTE | 2022-07-18 07:00 | NUR ---
WRINKLE CHASER OPENING NOTE PATIENT AMBULATING IN THE HALLWAY, GAIT STEADY NOTED. PATIENT ANXIOUS TO GET A CIGARETTE.
[2022-07-18 08:00] VITALS: BP 93/64
[2022-07-18] MEDS: MULTIVITAMINS,THERAGRAN 1 UDTAB TABLET PO SCH (08:46)
[2022-07-18] MEDS: CHOLECALCIFEROL 1,000 UNIT TABLET (VIT D3) PO SCH (08:46)
[2022-07-18] MEDS: NICOTINE PATCH (14MG) 14 MG PATCH.TD24 TD SCH (08:46)
[2022-07-18] MEDS: GABAPENTIN 300 MG CAPSULE PO SCH ×3 (08:46→17:02)
[2022-07-18] MEDS: VALPROIC ACID 250 MG/5 ML UDC PO SCH ×2 (08:47→17:01)
[2022-07-18] MEDS: DOCUSATE SODIUM 100 MG CAPSULE PO SCH (08:47)
[2022-07-18] MEDS: ASCORBIC ACID 500 MG TABLET PO SCH (08:48)
[2022-07-18] MEDS: LORAZEPAM 0.5 MG TABLET PO PRN ×2 (08:55→12:43)
--- NOTE | 2022-07-18 08:55 | NUR ---
SCRATCHER NOTE PATIENT IS DEMANDING TO HAVE A CIGARETTE, VERY ANXIOUS AND HE IS FOLLOWING EVERY STAFF MEMBER ASKING FOR CIGARETTE. ATIVAN 1MG PO GIVEN AT PRESENT DIRECTED. I CALLED TO LLUVIA PIPE PULLER TO TALK TO THE PATIENT TO TAKE ALL THE MORNING MEDICATIONS. PATIENT WAS COOPERATIVE TAKING HIS MEDS IN FRONT TO LLUVIA. CONT. TO MONITOR.
[2022-07-18] MEDS ORDERED: OLANZAPINE 10 MG TABLET PO SCH (09:00)
[2022-07-18 09:07] LABS: CREATININE 0.9 mg/dL (0.6-1.3)
--- NOTE | 2022-07-18 09:10 | NUR ---
Clinical Note: Pt placed on a 5150 hold for GD. Pt brought to the hospital due to being disorganized and disoriented. [facility] [address], [place] [address]; . GALINA spoke with Graeme cruz who stated that pt is welcomed back. Pt does not have any supportive contact.
--- NOTE | 2022-07-18 09:10 | NUR ---
GALINA Initial Discharge Plan: [facility] [address] [place] [address]; . GALINA spoke with Graeme cruz who stated that pt is welcomed back. Pt does not have any supportive contact. GALINA will work with the MD, family, and treatment team to help coordinate appropriate discharge.
[2022-07-18] MEDS ORDERED: ALLA266C2 TP (09:47)
[2022-07-18] MEDS ORDERED: MAG30ORA PO (09:47)
[2022-07-18] MEDS ORDERED: ZOLP5TAB8 PO (09:47)
--- NOTE | 2022-07-18 14:03 | NUR ---
Social Work Note/Substance Abuse Intervention: Patient was provided with a brief substance abuse intervention and referred to [facility] ([phone]), [facility] ([phone]), and [facility] ([phone]) for smoking cigarettes.
[2022-07-18] MEDS: OLANZAPINE 10 MG TABLET PO SCH (17:01)
--- NOTE | 2022-07-18 19:00 | NUR ---
BEE TENDER CLOSING NOTE PATIENT RESTING IN BED ATPRESENT, DENIES PAIN. NO S/S OF DISCOMFORT NOTED. WILL ENDORSE TO THE FOLLOWING NURSE.
[2022-07-18 20:00] VITALS: BP 101/52
[2022-07-18 20:18] VITALS: BP 101/53
[2022-07-18] MEDS: TRAZODONE 50 MG TABLET PO SCH ×3 (21:56→22:08)
[2022-07-18] MEDS ORDERED: TRAZODONE 50 MG TABLET PO SCH (22:00)
[2022-07-19 08:00] VITALS: BP 114/81
[2022-07-19] MEDS: NICOTINE PATCH (14MG) 14 MG PATCH.TD24 TD SCH (09:00)
[2022-07-19] MEDS: CHOLECALCIFEROL 1,000 UNIT TABLET (VIT D3) PO SCH (09:12)
[2022-07-19] MEDS: GABAPENTIN 300 MG CAPSULE PO SCH ×3 (09:12→17:43)
[2022-07-19] MEDS: ASCORBIC ACID 500 MG TABLET PO SCH (09:12)
[2022-07-19] MEDS: VALPROIC ACID 250 MG/5 ML UDC PO SCH ×2 (09:12→17:43)
[2022-07-19] MEDS: OLANZAPINE 10 MG TABLET PO SCH ×2 (09:13→17:43)
[2022-07-19] MEDS: DOCUSATE SODIUM 100 MG CAPSULE PO SCH (09:13)
[2022-07-19] MEDS: MULTIVITAMINS,THERAGRAN 1 UDTAB TABLET PO SCH (09:13)
[2022-07-19] MEDS: LORAZEPAM 0.5 MG TABLET PO PRN (09:13)
[2022-07-19 16:00] VITALS: BP 100/58
[2022-07-19 20:20] VITALS: BP 146/95
[2022-07-19] MEDS: TRAZODONE 50 MG TABLET PO SCH (22:06)
[2022-07-20 08:00] VITALS: BP 128/69
[2022-07-20] MEDS: VALPROIC ACID 250 MG/5 ML UDC PO SCH ×2 (08:01→16:25)
[2022-07-20] MEDS: NICOTINE PATCH (14MG) 14 MG PATCH.TD24 TD SCH ×2 (08:02→08:07)
[2022-07-20] MEDS: GABAPENTIN 300 MG CAPSULE PO SCH ×3 (08:02→16:25)
[2022-07-20] MEDS: DOCUSATE SODIUM 100 MG CAPSULE PO SCH ×2 (08:02→08:07)
[2022-07-20] MEDS: CHOLECALCIFEROL 1,000 UNIT TABLET (VIT D3) PO SCH (08:02)
[2022-07-20] MEDS: ASCORBIC ACID 500 MG TABLET PO SCH (08:02)
[2022-07-20] MEDS: MULTIVITAMINS,THERAGRAN 1 UDTAB TABLET PO SCH (08:02)
[2022-07-20] MEDS: OLANZAPINE 10 MG TABLET PO SCH ×2 (08:02→16:25)
--- NOTE | 2022-07-20 09:40 | NUR ---
RN Notes: Received pt. awake in bed, responsive to staffs and guarded upon approached. Ate 100% for breakfast, refused for Nicotine patch and refused for colace and compliant on the rest of the meds. Encouraged to verbalize feelings and motivated to attend group activity. Pt. stayed in his room and been on bed. Needs attended and will continue to monitor for safety.
[2022-07-20 16:00] VITALS: BP 148/95
--- NOTE | 2022-07-20 19:59 | NUR ---
RN NOTES: RECEIVED PATIENT RESTING IN BED . A/OX2. NO S/SX OF ACUTE DISTRESS NOTED. PATIENT IS GUARDED, DISORGNIZED , PARANOID EASILY GETS ANGRY, FOCUS ON FOOD, ENCOURAGED TO VERBALIZED ANY FEELING AND MOTIVATED TO ATTEND GROUP ACTIVTIES. ALL NEEDS ATTENDED AND ANTICIPATED. SAFETY PRECAUTIONS MAINTAINED. WILL CONTINUE TO MONITOR Q15MIN ROUNDS FOR SAFETY.
[2022-07-20 20:19] VITALS: BP 122/71
[2022-07-20] MEDS ORDERED: ALBUTEROL FS 2.5 MG/3 ML VIAL.NEB NEB PRN (21:30)
[2022-07-20] MEDS: TRAZODONE 50 MG TABLET PO SCH (21:31)
--- NOTE | 2022-07-21 07:25 | NUR ---
RN OPENING NOTE: RECEIVED PATIENT RESTING IN BED . A/OX2. NO S/SX OF ACUTE DISTRESS NOTED. PATIENT IS GUARDED, DISORGNIZED , PARANOID EASILY GETS ANGRY, FOCUS ON FOOD AND CONSTANTLY ASKING FOR JUICE AND COFFEE. REDIRECTED AND ENCOURAGED TO VERBALIZED ANY FEELING AND MOTIVATED TO ATTEND GROUP ACTIVTIES. ALL NEEDS ATTENDED AND ANTICIPATED. SAFETY PRECAUTIONS MAINTAINED. DENIES SUICIDAL IDEATIONN AND HOMICIDAL IDEATION. WILL CONTINUE TO MONITOR Q15MIN ROUNDS FOR SAFETY.
[2022-07-21 08:00] VITALS: BP 115/63
[2022-07-21] MEDS: ASCORBIC ACID 500 MG TABLET PO SCH (08:46)
[2022-07-21] MEDS: DOCUSATE SODIUM 100 MG CAPSULE PO SCH (08:46)
[2022-07-21] MEDS: MULTIVITAMINS,THERAGRAN 1 UDTAB TABLET PO SCH (08:47)
[2022-07-21] MEDS: VALPROIC ACID 250 MG/5 ML UDC PO SCH ×2 (08:47→17:08)
[2022-07-21] MEDS: NICOTINE PATCH (14MG) 14 MG PATCH.TD24 TD SCH (08:47)
[2022-07-21] MEDS: CHOLECALCIFEROL 1,000 UNIT TABLET (VIT D3) PO SCH (08:47)
[2022-07-21] MEDS: GABAPENTIN 100 MG CAPSULE PO SCH ×3 (08:47→17:09)
[2022-07-21] MEDS: OLANZAPINE 10 MG TABLET PO SCH ×2 (08:47→17:09)
[2022-07-21 16:00] VITALS: BP 132/71
[2022-07-21 20:00] VITALS: BP 126/69
--- NOTE | 2022-07-21 20:08 | NUR ---
SPACE BUYER NOTE: RECEIVED PATIENT RESTING IN BED . A/OX2. NO S/SX OF ACUTE DISTRESS NOTED. PATIENT IS GUARDED, FORGETFUL,DISORGANIZED , PARANOID EASILY GETS ANGRY,FOCUSED ON FOOD, REDIRECTABLE. ENCOURAGED TO VERBALIZED ANY FEELING AND MOTIVATED TO ATTEND GROUP ACTIVITIES. AMBULATORY WITH STEADY GAIT. ALL NEEDS ATTENDED AND ANTICIPATED. SAFETY PRECAUTIONS MAINTAINED. WILL CONTINUE TO MONITOR Q15MIN ROUNDS FOR SAFETY.
[2022-07-21] MEDS: TRAZODONE 50 MG TABLET PO SCH (21:17)
[2022-07-21 22:00] VITALS: BP 126/69
[2022-07-22 08:00] VITALS: BP 165/92
[2022-07-22] MEDS: CHOLECALCIFEROL 1,000 UNIT TABLET (VIT D3) PO SCH (08:37)
[2022-07-22] MEDS: OLANZAPINE 10 MG TABLET PO SCH ×2 (08:37→16:31)
[2022-07-22] MEDS: ASCORBIC ACID 500 MG TABLET PO SCH (08:37)
[2022-07-22] MEDS: NICOTINE PATCH (14MG) 14 MG PATCH.TD24 TD SCH ×2 (08:37→09:00)
[2022-07-22] MEDS: VALPROIC ACID 250 MG/5 ML UDC PO SCH ×2 (08:37→16:32)
[2022-07-22] MEDS: MULTIVITAMINS,THERAGRAN 1 UDTAB TABLET PO SCH (08:37)
[2022-07-22] MEDS: DOCUSATE SODIUM 100 MG CAPSULE PO SCH (08:37)
[2022-07-22] MEDS: GABAPENTIN 100 MG CAPSULE PO SCH ×3 (08:38→16:32)
--- NOTE | 2022-07-22 09:21 | NUR ---
RN NOTE Patient refused nicoderm/nicotine patch due at 0900, patch opened, discarded. Tony Nurse aware.
[2022-07-22 10:00] VITALS: BP 165/92
[2022-07-22] MEDS: LORAZEPAM 0.5 MG TABLET PO PRN (13:36)
--- NOTE | 2022-07-22 13:40 | NUR ---
RN NOTE Patient is agitated, fixated with smoking, Ativan 1mg po prn given at 1336. Will continue to monitor.
[2022-07-22 16:00] VITALS: BP 139/71
--- NOTE | 2022-07-22 18:41 | NUR ---
RN CLOSING NOTE Patient awake in the room, calm, cooperative and compliant to medication. On room air, ambulatory. Able to verbalized needs. Still fixated to smoking and food. Safety measures implemented. Will endorse cholo to night worker.
[2022-07-22 20:00] VITALS: BP 125/65
[2022-07-22] MEDS: TRAZODONE 50 MG TABLET PO SCH (21:15)
[2022-07-22 22:00] VITALS: BP 125/65
[2022-07-23 08:00] VITALS: BP 123/65
[2022-07-23] MEDS: CHOLECALCIFEROL 1,000 UNIT TABLET (VIT D3) PO SCH (08:46)
[2022-07-23] MEDS: VALPROIC ACID 250 MG/5 ML UDC PO SCH ×2 (08:46→16:47)
[2022-07-23] MEDS: GABAPENTIN 100 MG CAPSULE PO SCH ×3 (08:46→17:03)
[2022-07-23] MEDS: DOCUSATE SODIUM 100 MG CAPSULE PO SCH (08:46)
[2022-07-23] MEDS: MULTIVITAMINS,THERAGRAN 1 UDTAB TABLET PO SCH (08:46)
[2022-07-23] MEDS: OLANZAPINE 10 MG TABLET PO SCH ×2 (08:46→16:47)
[2022-07-23] MEDS: ASCORBIC ACID 500 MG TABLET PO SCH (08:46)
[2022-07-23] MEDS: NICOTINE PATCH (14MG) 14 MG PATCH.TD24 TD SCH (08:47)
[2022-07-23 10:00] VITALS: BP 123/65
--- NOTE | 2022-07-23 19:00 | NUR ---
RN CLOSING NOTE Patient sleeping in his bed, calm, cooperative and compliant to medication. On room air, ambulatory. Able to verbalized needs. patient was keep asking for juice throughout the shift. Still fixated to smoking. Safety measures implemented. Will endorse to film processing shift supervisor for cholo.
[2022-07-23 20:33] VITALS: BP 149/98
[2022-07-23] MEDS: TRAZODONE 50 MG TABLET PO SCH (21:31)
[2022-07-23] MEDS: ZOLPIDEM TARTRATE 5 MG TABLET PO PRN (21:31)
[2022-07-23 23:03] VITALS: BP 149/98
[2022-07-24 08:00] VITALS: BP 107/76
[2022-07-24] MEDS: CHOLECALCIFEROL 1,000 UNIT TABLET (VIT D3) PO SCH (08:44)
[2022-07-24] MEDS: NICOTINE PATCH (14MG) 14 MG PATCH.TD24 TD SCH ×2 (08:44→09:00)
[2022-07-24] MEDS: DOCUSATE SODIUM 100 MG CAPSULE PO SCH (08:44)
[2022-07-24] MEDS: MULTIVITAMINS,THERAGRAN 1 UDTAB TABLET PO SCH (08:44)
[2022-07-24] MEDS: VALPROIC ACID 250 MG/5 ML UDC PO SCH ×2 (08:44→16:32)
[2022-07-24] MEDS: ASCORBIC ACID 500 MG TABLET PO SCH (08:44)
[2022-07-24] MEDS: GABAPENTIN 100 MG CAPSULE PO SCH ×3 (08:44→16:32)
[2022-07-24] MEDS: OLANZAPINE 10 MG TABLET PO SCH ×2 (08:45→16:32)
[2022-07-24 10:00] VITALS: BP 107/76
--- NOTE | 2022-07-24 10:32 | NUR ---
Court Hearing: Patient's court hearing was today and it was upheld for GD.
--- NOTE | 2022-07-24 10:32 | NUR ---
Court Notification: Pt does not have any supportive contact at this time.
[2022-07-24] MEDS: LORAZEPAM 0.5 MG TABLET PO PRN (11:10)
--- NOTE | 2022-07-24 11:13 | NUR ---
NURSE NOTE: PT ANXIOUS AT THIS TIME, PACING THE HALLS, HYPERVERBAL, PREOCCUPIED ON OWN THOUGHTS, UNABLE TO REDIRECT. ATIVAN PO ADMINISTERED ORDERED. PT MARYLU WELL. WILL CONT TO MONITOR.
--- NOTE | 2022-07-24 12:13 | NUR ---
NURSE NOTE: PT RESTING AT THIS TIME. ATIVAN EFFECTIVE. WILL CONT TO MONITOR.
[2022-07-24 16:00] VITALS: BP 128/99
--- NOTE | 2022-07-24 19:30 | NUR ---
GPS RN OPENING NOTE RECEIVED PT RESTING IN BED, VERBALLY RESPONSIVE. A/O X2 AND ABLE TO MAKE NEEDS KNOWN. PT STABLE ON ROOM AIR. NO SOB OR S/S OF RESPIRATORY DISTRESS. BREATHING EVEN AND UNLABORED. NO COMPLAINTS OF PAIN OR DISCOMFORT AT THIS TIME. FORGETFUL, FOOD FOCUSED, NEEDS FREQUENT REDIRECTION. DENIES SI/HI AT THIS TIME. AMBULATORY WITH STEADY GAIT.WILL CONT TO MONITOR Q15MIN FOR SAFETY AND BEHAVIOR.
[2022-07-24 20:07] VITALS: BP 142/88
[2022-07-24 22:00] VITALS: BP 142/88
[2022-07-24] MEDS: TRAZODONE 50 MG TABLET PO SCH (22:00)
--- NOTE | 2022-07-25 06:43 | NUR ---
GPS RN CLOSING NOTE PT RESTING IN BED, VERBALLY RESPONSIVE. A/O X2 AND ABLE TO MAKE NEEDS KNOWN. PT STABLE ON ROOM AIR. NO SOB OR S/S OF RESPIRATORY DISTRESS. BREATHING EVEN AND UNLABORED. NO COMPLAINTS OF PAIN OR DISCOMFORT AT THIS TIME. FORGETFUL, FOOD FOCUSED, NEEDS FREQUENT REDIRECTION. DENIES SI/HI AT THIS TIME. AMBULATORY WITH STEADY GAIT.WILL CONT TO MONITOR Q15MIN FOR SAFETY AND BEHAVIOR AND WILL ENDORSE TO ONCOMING NURSE FOR MEKA.
--- NOTE | 2022-07-25 07:34 | NUR ---
RN NOTES PT IN BED, ASLEEP, EASY TO AROUSE, NO COMPLAINT, NO BEHAVIOR ISSUES AT THIS TIME, NEEDS ATTENDED.
[2022-07-25 08:00] VITALS: BP 115/80
[2022-07-25] MEDS: GABAPENTIN 100 MG CAPSULE PO SCH ×3 (08:37→16:29)
[2022-07-25] MEDS: OLANZAPINE 10 MG TABLET PO SCH ×2 (08:37→16:29)
[2022-07-25] MEDS: ASCORBIC ACID 500 MG TABLET PO SCH (08:37)
[2022-07-25] MEDS: CHOLECALCIFEROL 1,000 UNIT TABLET (VIT D3) PO SCH (08:37)
[2022-07-25] MEDS: NICOTINE PATCH (14MG) 14 MG PATCH.TD24 TD SCH ×2 (08:37→08:43)
[2022-07-25] MEDS: MULTIVITAMINS,THERAGRAN 1 UDTAB TABLET PO SCH (08:37)
[2022-07-25] MEDS: VALPROIC ACID 250 MG/5 ML UDC PO SCH ×2 (08:37→16:29)
[2022-07-25] MEDS: DOCUSATE SODIUM 100 MG CAPSULE PO SCH (08:37)
[2022-07-25 10:00] VITALS: BP 115/80
[2022-07-25 15:58] VITALS: BP 155/97
--- NOTE | 2022-07-25 18:46 | NUR ---
RN NOTES PT IN BED, RESTING, NO COMPLAINT AT THIS TIME, COMPLIANT WITH MEDICATION, WITH GOOD ORAL INTAKE, ALL NEEDS ATTENDED.
[2022-07-25 20:25] VITALS: BP 119/82
[2022-07-25] MEDS: TRAZODONE 50 MG TABLET PO SCH (21:51)
[2022-07-25 22:28] VITALS: BP 119/82
[2022-07-26 08:00] VITALS: BP 121/83
[2022-07-26] MEDS: GABAPENTIN 100 MG CAPSULE PO SCH ×3 (08:36→16:28)
[2022-07-26] MEDS: VALPROIC ACID 250 MG/5 ML UDC PO SCH ×2 (08:36→16:28)
[2022-07-26] MEDS: MULTIVITAMINS,THERAGRAN 1 UDTAB TABLET PO SCH (08:36)
[2022-07-26] MEDS: ASCORBIC ACID 500 MG TABLET PO SCH (08:36)
[2022-07-26] MEDS: DOCUSATE SODIUM 100 MG CAPSULE PO SCH (08:36)
[2022-07-26] MEDS: OLANZAPINE 10 MG TABLET PO SCH ×2 (08:36→16:28)
[2022-07-26] MEDS: CHOLECALCIFEROL 1,000 UNIT TABLET (VIT D3) PO SCH (08:36)
[2022-07-26] MEDS: NICOTINE PATCH (14MG) 14 MG PATCH.TD24 TD SCH (08:37)
[2022-07-26 10:00] VITALS: BP 121/83
[2022-07-26 16:09] VITALS: BP 154/77
--- NOTE | 2022-07-26 17:27 | NUR ---
NURSE NOTE: PT C/O HAVING LOOSE STOOLS, REQUESTED MAALOX AT THIS TIME. MAALOX ADMIN ORDERED. ALSO INSTRUCTED PT TO STOP DRINKING SO MUCH JUICE AND MILK. WILL CONT TO MONITOR.
--- NOTE | 2022-07-26 19:00 | NUR ---
RN opening notes Received Pt from morning nurse. Pt is walking in the hallway with a steady gait. Pt is alert and orientedX2, forgetful and needs directions. On room air. No SOB. No S/S of distress noted. Pt keep asking for a snacks and juices. Pt denies SI/Hi at this time. Snacks is provided. Safety precautions is maintained. Will continue to monitor Q 15 mins checks for safety and behavior.
--- NOTE | 2022-07-26 19:34 | NUR ---
RN notes Pt is refusing VS. Explained risks and benefits. Pt keep refusing. Pt stated "No!! I want to sleep!" Pt agitated easily. Will continue to monitor.
[2022-07-26] MEDS: TRAZODONE 50 MG TABLET PO SCH (21:08)
--- NOTE | 2022-07-27 07:30 | NUR ---
RN OPENING NOTE: RECEIVED PT IN BED. AOX3 WITH PERIODS OF CONFUSION. ON ROOM AIR WITH NO RESP DISTRESS NOTED. DENIES PAIN OR DISCOMFORT. DENIES SI AND HI. BED LOCK AND LOW POSITION. CALL LIGHT WITHIN REACH.
[2022-07-27 08:00] VITALS: BP 128/84
[2022-07-27] MEDS: NICOTINE PATCH (14MG) 14 MG PATCH.TD24 TD SCH (08:26)
[2022-07-27] MEDS: DOCUSATE SODIUM 100 MG CAPSULE PO SCH (08:27)
[2022-07-27] MEDS: MULTIVITAMINS,THERAGRAN 1 UDTAB TABLET PO SCH (08:27)
[2022-07-27] MEDS: ASCORBIC ACID 500 MG TABLET PO SCH (08:27)
[2022-07-27] MEDS: OLANZAPINE 10 MG TABLET PO SCH ×2 (08:27→16:02)
[2022-07-27] MEDS: GABAPENTIN 100 MG CAPSULE PO SCH ×3 (08:27→16:02)
[2022-07-27] MEDS: CHOLECALCIFEROL 1,000 UNIT TABLET (VIT D3) PO SCH (08:27)
[2022-07-27] MEDS: VALPROIC ACID 250 MG/5 ML UDC PO SCH ×2 (08:32→16:02)
[2022-07-27 10:00] VITALS: BP 128/84
[2022-07-27 16:00] VITALS: BP 109/60
--- NOTE | 2022-07-27 16:38 | NUR ---
Assumed care: Pt. is the room, awake and guarded upon approached and asking for a juice. Per. EMPLOYEE HEALTH NURSE he just his juices. No distress and no agitation noted. Will continue to monitor for safety.
--- NOTE | 2022-07-27 19:48 | NUR ---
GPS RN OPENING NOTE RECEIVED PT ASLEEP IN BED. A/O X1-2 AND ABLE TO MAKE NEEDS KNOWN. PATIENT STABLE ON ROOM AIR. NO SOB OR S/S OF RESPIRATORY DISTRESS. BREATHING EVEN AND UNLABORED. NO COMPLAINTS OF PAIN OR DISCOMFORT AT THIS TIME. DELUSIONAL AND COOPERATIVE. ENCOURAGED TO VERBALIZED EELINGS, SAFETY PRECAUTIONS MAINTAINED. DENIES SI/HI AT THIS TIME. AMBULATORY WITH STEADY GAIT.WILL CONT TO MONITOR Q15MIN FOR SAFETY AND BEHAVIOR
[2022-07-27 20:00] VITALS: BP 135/81
[2022-07-27] MEDS: TRAZODONE 50 MG TABLET PO SCH (21:42)
[2022-07-27 22:00] VITALS: BP 135/81
[2022-07-28 08:00] VITALS: BP 122/78
[2022-07-28] MEDS: CHOLECALCIFEROL 1,000 UNIT TABLET (VIT D3) PO SCH (08:16)
[2022-07-28] MEDS: VALPROIC ACID 250 MG/5 ML UDC PO SCH ×2 (08:16→16:24)
[2022-07-28] MEDS: GABAPENTIN 100 MG CAPSULE PO SCH ×3 (08:17→16:24)
[2022-07-28] MEDS: DOCUSATE SODIUM 100 MG CAPSULE PO SCH (08:17)
[2022-07-28] MEDS: OLANZAPINE 10 MG TABLET PO SCH ×2 (08:17→16:25)
[2022-07-28] MEDS: ASCORBIC ACID 500 MG TABLET PO SCH (08:17)
[2022-07-28] MEDS: NICOTINE PATCH (14MG) 14 MG PATCH.TD24 TD SCH ×2 (08:17→08:40)
[2022-07-28] MEDS: MULTIVITAMINS,THERAGRAN 1 UDTAB TABLET PO SCH (08:17)
[2022-07-28 10:28] VITALS: BP 122/78
[2022-07-28 16:00] VITALS: BP 124/81
--- NOTE | 2022-07-28 19:31 | NUR ---
GPS RN NOTE, RECEIVED PATIENT AWAKE AND IN BED, NO S/S OR COMPLAINTS OF PAIN AT THIS TIME. PATIENT IS DISPLAYING NO S/S OF APPARENT DISTRESS AT THIS TIME. PATIENT BREATHING IS UNLABORED WITH EQUAL RISE AND FALL OF THE CHEST. PATIENT IS ALERT AND ORIENTED X 2 ON ROOM AIR WITH A SPO2 95%. PATIENT IS COMPLIANT WITH MEDICATIONS, FOCUSED ON FOOD, IRRITABLE AT TIMES, MAKES NEEDS KNOWN, AND COOPERATIVE. PATIENT DENIES SUICIDAL AND HOMICIDAL IDEATIONS AT THIS TIME. PATIENT ASSISTED WITH TURNING AND REPOSITIONING Q2HR AND PRN FOR COMFORT AND CIRCULATION. PATIENT HAS NO NEEDS AT THIS TIME. PATIENT EDUCATED ON THE USE OF THE CALL SANCHEZ. PATIENT BED SIDE RAILS UP X 2 FOR SAFETY. PATIENT BED IS LOCKED, LOW, WITH BED ALARM ON. WILL CONTINUE TO MONITOR THIS PATIENT Q15 MINUTES WITH THE HELP OF STAFF TO MAINTAIN SAFETY.
[2022-07-28 20:00] VITALS: BP 128/96
[2022-07-28] MEDS: TRAZODONE 50 MG TABLET PO SCH (21:27)
[2022-07-29 08:00] VITALS: BP 137/76
[2022-07-29] MEDS: VALPROIC ACID 250 MG/5 ML UDC PO SCH ×2 (08:11→16:13)
[2022-07-29] MEDS: MULTIVITAMINS,THERAGRAN 1 UDTAB TABLET PO SCH (08:11)
[2022-07-29] MEDS: OLANZAPINE 10 MG TABLET PO SCH ×2 (08:11→16:13)
[2022-07-29] MEDS: ASCORBIC ACID 500 MG TABLET PO SCH (08:11)
[2022-07-29] MEDS: DOCUSATE SODIUM 100 MG CAPSULE PO SCH (08:11)
[2022-07-29] MEDS: CHOLECALCIFEROL 1,000 UNIT TABLET (VIT D3) PO SCH (08:11)
[2022-07-29] MEDS: GABAPENTIN 100 MG CAPSULE PO SCH ×3 (08:11→16:13)
[2022-07-29] MEDS: NICOTINE PATCH (14MG) 14 MG PATCH.TD24 TD SCH ×2 (08:15→08:48)
--- NOTE | 2022-07-29 09:50 | NUR ---
RN Notes: Received asleep in bed, breathing is even and unlabored. Ate 100% for breakfast, refused Nicotine patch and compliant on the rest of the po meds. Pt. is disorganized, needy, unkempt and focused on juice and milk. Encouraged to verbalize feelings, motivated to attend group activity and encouraged to take shower. Needs attended and will continue to monitor for safety.
[2022-07-29 16:00] VITALS: BP 154/92
[2022-07-29 20:00] VITALS: BP 126/63
[2022-07-29] MEDS: TRAZODONE 50 MG TABLET PO SCH (21:24)
[2022-07-30 08:00] VITALS: BP 109/63
[2022-07-30] MEDS: NICOTINE PATCH (14MG) 14 MG PATCH.TD24 TD SCH ×4 (08:15→18:38)
[2022-07-30] MEDS: CHOLECALCIFEROL 1,000 UNIT TABLET (VIT D3) PO SCH (08:15)
[2022-07-30] MEDS: VALPROIC ACID 250 MG/5 ML UDC PO SCH ×2 (08:15→16:12)
[2022-07-30] MEDS: DOCUSATE SODIUM 100 MG CAPSULE PO SCH (08:15)
[2022-07-30] MEDS: OLANZAPINE 10 MG TABLET PO SCH ×2 (08:15→16:11)
[2022-07-30] MEDS: GABAPENTIN 100 MG CAPSULE PO SCH ×3 (08:16→16:12)
[2022-07-30] MEDS: ASCORBIC ACID 500 MG TABLET PO SCH (08:16)
[2022-07-30] MEDS: MULTIVITAMINS,THERAGRAN 1 UDTAB TABLET PO SCH (08:16)
--- NOTE | 2022-07-30 13:17 | NUR ---
RN-CO; PATIENT DENIED PAIN AND DISCOMFORTS, ATE LUNCH AND TOOK HIS MEDICATIONS. HE IS PREOCCUPIED ASKING FOR ORANGE JUICE. HE WON'T STOP UNTIL YOU GIVE HIM ORANGE JUICE. HE IS UNKEMPT AND DISHEVELED, REFUSED TO GROOM AND TO SHOWER. HE IS EASILY IRRITATED. HE NEEDS LIMIT SETTING BEC HE CAN BE MANIPULATIVE TO STAFF.
[2022-07-30 16:00] VITALS: BP 119/67
[2022-07-30 19:43] VITALS: BP 149/98
--- NOTE | 2022-07-30 19:46 | NUR ---
GPS EXPLOSIVE EXPERT NOTE,RECEIVED PATIENT AWAKE AND IN BED, PAYIENT IS A/O X2.ON ROOM AIR WITH SPO2 OF 95%. NO S/S OR COMPLAINTS OF PAIN AT THIS TIME. PATIENT IS DISPLAYING NO S/S OF APPARENT DISTRESS AT THIS TIME. PATIENT BREATHING IS UNLABORED WITH EQUAL RISE AND FALL OF THE CHEST. PATIENT IS COMPLIANT WITH MEDICATIONS, FOCUSED ON FOOD, IRRITABLE AT TIMES, MAKES NEEDS KNOWN, AND COOPERATIVE. PATIENT DENIES SUICIDAL AND HOMICIDAL IDEATIONS AT THIS TIME. PATIENT ASSISTED WITH TURNING AND REPOSITIONING Q2HR AND PRN FOR COMFORT AND CIRCULATION. PATIENT HAS NO NEEDS AT THIS TIME. PATIENT EDUCATED ON THE USE OF THE CALL SANCHEZ. PATIENT BED SIDE RAILS UP X 2 FOR SAFETY. PATIENT BED IS LOCKED, LOW, WITH BED ALARM ON. WILL CONTINUE TO MONITOR THIS PATIENT Q15 MINUTES WITH THE HELP OF STAFF TO MAINTAIN SAFETY.
[2022-07-30] MEDS: TRAZODONE 50 MG TABLET PO SCH (21:10)
[2022-07-31 08:00] VITALS: BP 119/73
[2022-07-31] MEDS: GABAPENTIN 100 MG CAPSULE PO SCH ×3 (08:27→17:06)
[2022-07-31] MEDS: ASCORBIC ACID 500 MG TABLET PO SCH (08:27)
[2022-07-31] MEDS: OLANZAPINE 10 MG TABLET PO SCH ×2 (08:27→17:06)
[2022-07-31] MEDS: VALPROIC ACID 250 MG/5 ML UDC PO SCH ×2 (08:27→17:06)
[2022-07-31] MEDS: NICOTINE PATCH (14MG) 14 MG PATCH.TD24 TD SCH ×2 (08:27→09:00)
[2022-07-31] MEDS: LORAZEPAM 0.5 MG TABLET PO PRN (08:27)
[2022-07-31] MEDS: MULTIVITAMINS,THERAGRAN 1 UDTAB TABLET PO SCH (08:28)
[2022-07-31] MEDS: CHOLECALCIFEROL 1,000 UNIT TABLET (VIT D3) PO SCH (08:28)
[2022-07-31] MEDS: DOCUSATE SODIUM 100 MG CAPSULE PO SCH (08:28)
[2022-07-31 16:00] VITALS: BP 138/90
[2022-07-31 19:35] VITALS: BP 105/59
[2022-07-31] MEDS: ZOLPIDEM TARTRATE 5 MG TABLET PO PRN (21:19)
[2022-07-31] MEDS: TRAZODONE 50 MG TABLET PO SCH (21:19)
--- NOTE | 2022-08-01 08:12 | NUR ---
SW Discharge Note: Patient will be discharged to retirement facility to [facility] [address] [place] [address]; . Please arrange Ambulance transportation for patient to be picked up at 2PM. Audio Director spoke with ANNALEE, Instructor Bridge at [facility]; ([phone]), who stated patient will be accepted at facility today. Patient is alert and oriented x2. Patient denies any suicidal or homicidal ideations. Patient is aware and agreeable with discharge plans. Patients friend Akbar ([phone]), ([phone]) is aware and agreeable with discharge. Patient will continue to follow-up with her Psychiatrist Dr. Johnson [address] [address]; ([phone]) and [employer] Dr. De at [address], [place] [address]; ([phone]).
[2022-08-01 08:14] VITALS: BP 123/77
[2022-08-01] MEDS: VALPROIC ACID 250 MG/5 ML UDC PO SCH (08:19)
[2022-08-01] MEDS: ASCORBIC ACID 500 MG TABLET PO SCH (08:19)
[2022-08-01] MEDS: CHOLECALCIFEROL 1,000 UNIT TABLET (VIT D3) PO SCH (08:19)
[2022-08-01] MEDS: GABAPENTIN 100 MG CAPSULE PO SCH ×2 (08:19→12:54)
[2022-08-01] MEDS: OLANZAPINE 10 MG TABLET PO SCH (08:19)
[2022-08-01] MEDS: DOCUSATE SODIUM 100 MG CAPSULE PO SCH (08:19)
[2022-08-01] MEDS: MULTIVITAMINS,THERAGRAN 1 UDTAB TABLET PO SCH (08:20)
[2022-08-01] MEDS: NICOTINE PATCH (14MG) 14 MG PATCH.TD24 TD SCH (08:21)
--- NOTE | 2022-08-01 14:40 | NUR ---
62 YEAR OLD MALE DISCHARGED TO [facility] IN STABLE CONDITION. COMPLIANT WITH MEDICATIONS, COOPERATIVE WITH TREATMENT PLANS. PT DENIES SI/HI/AVH AND INSTRUCTED TO GO TO THE CLOSEST ER IF DEVELOPING SI/HI. BEHAVIOR IMPROVED, PSYCHIATRIC TX PLANS MET, MEDICAL TX PLANS DEFERRED FOR CONTINUAL MONITORING. EDUCATED PT ABOUT AFTER CARE PLAN AND COPY PROVIDED. RETURNED PERSONAL BELONGINGS TO PT. MEDICATIONS RECONCILED WITH DR. DUNLAP AND DR. DUBOIS REPORT GIVEN TO ROSALEE PANDYA AT [facility] FOR CONTINUITY OF CARE. PT REFUSED TO SIGN DISCHARGE PAPERWORK. NO WOUNDS TO TAKE PICTURES OF PT LEFT THE UNIT AT 1440 VIA AMBULANCE.
== END 2022-08-01 14:40 | DRG 885 ==
LOC: GPS 21:04
PROVIDERS: ADMIT Psychiatry & Neurology Psychiatry
DX: F25.0 Schizoaffective disorder, bipolar type (principal); G93.41 Metabolic encephalopathy; F03.918 Unspecified dementia, unspecified severity, with other behavioral disturbance; F29 Unspecified psychosis not due to a substance or known physiological condition; J44.9 Chronic obstructive pulmonary disease, unspecified; Z79.51 Long term (current) use of inhaled steroids; G62.9 Polyneuropathy, unspecified; Z79.899 Other long term (current) drug therapy; F17.210 Nicotine dependence, cigarettes, uncomplicated
CPT/HCPCS: 36415; 80061-TC; 82565-TC

== ENCOUNTER 2023-01-08 14:44 | Inpatient (IN) | payer MEDICARE, OTHER ==
[~2023-01-08] VITALS: Ht 177.8 cm; Wt 99.8 kg
[~2023-01-08 14:44] MED LIST changes: -ALBU18HF2 IH; +ALBUT2 NEB; +ALLA266C2 TP; -CLON0.5T PO; +MAG30ORA PO; -MULT-754 PO; -NA P133E RC; +NICO-762 TD; -OLAN10TA3 PO; -TRAZ-257 PO; -TYL2T PO; -VALP250S4 PO
[2023-01-08] MEDS ORDERED: MULT-24 PO (15:37)
[2023-01-08] MEDS ORDERED: MAGN400O6 PO (15:37)
[2023-01-08] MEDS ORDERED: ASCO-340 PO (15:37)
[2023-01-08] MEDS ORDERED: NA P133E RC (15:37)
[2023-01-08] MEDS ORDERED: CHOL100043 PO (15:37)
[2023-01-08] MEDS ORDERED: ACET-868 PO (15:37)
[2023-01-08] MEDS ORDERED: GABA300C PO (15:37)
[2023-01-08] MEDS ORDERED: TRAZ-257 PO (15:37)
[2023-01-08] MEDS ORDERED: BISA10SU11 RC (15:37)
[2023-01-08] MEDS ORDERED: VALP250S22 PO (15:37)
[2023-01-08] MEDS ORDERED: MAGN400T26 PO (15:37)
[2023-01-08] MEDS ORDERED: SODI1TAB66 PO (15:37)
[2023-01-08] MEDS ORDERED: TYL2T PO (15:37)
[2023-01-08] MEDS ORDERED: DOCU-141 PO (15:37)
[2023-01-08] MEDS ORDERED: OLAN10TA3 PO (15:37)
[2023-01-08] MEDS ORDERED: MAG30ORA PO (15:37)
[2023-01-08 16:29] LABS: BASOPHILS % (AUTO) 0.6 % (0.0-2.0); EOSINOPHILS # (AUTO) 0.1 K/uL (0.0-0.7); EOSINOPHILS % (AUTO) 1.1 % (0.0-6.0); HEMATOCRIT 45 % (39-51); HEMOGLOBIN 15.6 g/dL (13.5-17.5); LYMPHOCYTES # (AUTO) 1.4 K/uL (0.8-4.8); LYMPHOCYTES % (AUTO) 18.9 % (20.0-44.0); MEAN CORPUSCULAR HEMOGLOBIN 30 PG (26.0-33.0); MEAN CORPUSCULAR HGB CONC 35 g/dl (31.0-36.0); MEAN CORPUSCULAR VOLUME 87 fL (80-96); MONOCYTES # (AUTO) 0.7 K/uL (0.1-1.30); MONOCYTES % (AUTO) 10.2 % (2.0-12.0); NEUTROPHILS # (AUTO) 5.1 K/uL (1.8-8.9); NEUTROPHILS % (AUTO) 69.2 % (43.0-81.0); PLATELET COUNT (AUTO) 148 K/uL (150-450); RED BLOOD CELL COUNT(AUTO) 5.21 MIL/uL (4.5-6.0); RED CELL DISTRIBUTION WIDTH 14.3 % (11.5-15.0); WHITE BLOOD COUNT (AUTO) 7.4 K/uL (4.3-11.0)
[2023-01-08 16:44] LABS: APPEARANCE,URINE CLEAR (CLEAR); BILIRUBIN,URINE NEGATIVE (NEGATIVE); BLOOD, URINE NEGATIVE Ery/uL (NEGATIVE); COLOR,URINE YELLOW (YELLOW); KETONES,URINE NEGATIVE (NEGATIVE); LEUKOCYTE ESTERASE ,URINE NEGATIVE (NEGATIVE); NITRITE, URINE NEGATIVE (NEGATIVE); PROTEIN,URINE NEGATIVE (NEGATIVE); UGLUCOSE NEGATIVE (NEGATIVE); UROBILINOGEN,URINE 0.2 EU/dL (0.2)
[2023-01-08 16:49] LABS: CALCIUM, SERUM 8.3 mg/dL (8.5-10.1); CARBON DIOXIDE 22 mmol/L (21-32); CHLORIDE 95 mmol/L (98-107); CREATININE 0.6 mg/dL (0.6-1.3); GLUCOSE 93 mg/dL (74-106); POTASSIUM 3.6 mmol/L (3.5-5.1); SODIUM SERUM 126 mmol/L (136-145); UREA NITROGEN, BLOOD 10 mg/dL (7-18)
[2023-01-08 16:55] LABS: ALANINE AMINOTRANSFERASE 26 U/L (12-78); ALBUMIN 3.2 g/dL (3.4-5.0); ALCOHOL, BLOOD < 3 mg/dL (0-10); ALKALINE PHOSPHATASE 73 U/L (46-116); ASPARTATE AMINOTRANSFERASE 15 U/L (15-37); BILIRUBIN,DIRECT 0.1 mg/dL (0.0-0.2); BILIRUBIN,TOTAL 0.5 mg/dL (0.2-1.0); SALICYLATE 3.8 mg/dL (2.8-20.0); TOTAL PROTEIN, SERUM 6.2 g/dL (6.4-8.2)
[2023-01-08 17:00] LABS: ACETAMINOPHEN 0 ug/ml (10-30)
[2023-01-08] MEDS ORDERED: BISACODYL SUPP (10 MG) 10 MG/SUPP.RECT SUPP.RECT RC PRN (17:00)
[2023-01-08] MEDS ORDERED: VALPROIC ACID 250 MG/5 ML UDC PO SCH (17:00)
[2023-01-08] MEDS: GABAPENTIN 300 MG CAPSULE PO SCH (17:00)
[2023-01-08] MEDS ORDERED: ACETAMINOPHEN 325 MG TABLET PO PRN ×2 (17:00→21:30)
[2023-01-08] MEDS ORDERED: IV NS 0.9% 1,000 ML BAG IV ONE (17:30)
[2023-01-08 17:31] LABS: AMPHETAMINE, URINE NEGATIVE (NEGATIVE); BARBITURATE, URINE NEGATIVE (NEGATIVE); BENZODIAZEPINE, URINE NEGATIVE (NEGATIVE); CANNABINOID, URINE NEGATIVE (NEGATIVE); COCCAINE, URINE NEGATIVE (NEGATIVE); OPIATE, URINE NEGATIVE (NEGATIVE); PHENCYCLIDINE SCREEN,URINE NEGATIVE (NEGATIVE)
[2023-01-08 21:05] VITALS: BP 145/98; TEMP 98.4; O2SAT 96
[2023-01-08] MEDS ORDERED: LORAZEPAM 0.5 MG TABLET PO PRN (21:30)
[2023-01-08] MEDS ORDERED: BLOOD SUGAR DIAGNOSTIC 1 EACH STRIP IN ONE (21:30)
[2023-01-08] MEDS ORDERED: TEMAZEPAM 7.5 MG CAPSULE PO PRN (21:30)
[2023-01-08] MEDS ORDERED: MAGNESIUM HYDROXIDE 30 ML UDC PO PRN (21:30)
[2023-01-08] MEDS ORDERED: MAG HYDROX/AL HYDROX/SIMETH 30 ML UDC PO PRN (21:30)
[2023-01-08 21:58] VITALS: BP 145/102; TEMP 98.4; O2SAT 96
[2023-01-09 08:00] VITALS: BP 163/112; TEMP 97.8; O2SAT 98
[2023-01-09] MEDS: MULTIVITAMINS,THERAGRAN 1 UDTAB TABLET PO SCH (09:12)
[2023-01-09] MEDS: GABAPENTIN 300 MG CAPSULE PO SCH ×3 (09:12→16:22)
[2023-01-09] MEDS: NICOTINE PATCH (14MG) 14 MG PATCH.TD24 TD SCH (09:13)
[2023-01-09] MEDS: DOCUSATE SODIUM 100 MG CAPSULE PO SCH (09:13)
[2023-01-09] MEDS: ASCORBIC ACID 500 MG TABLET PO SCH (09:14)
[2023-01-09] MEDS: AMLODIPINE BESYLATE 5 MG TABLET PO SCH (11:48)
[2023-01-09] MEDS: DIVALPROEX SODIUM 500 MG TABLET.DR PO SCH ×2 (11:48→21:03)
[2023-01-09] MEDS: OLANZAPINE 10 MG TABLET PO SCH ×2 (11:48→16:20)
[2023-01-09] MEDS ORDERED: SODIUM CHLORIDE 1000 MG TABLET PO SCH (15:00)
[2023-01-09 16:00] VITALS: BP 130/77; TEMP 98.6; O2SAT 96
[2023-01-09 16:30] LABS: CREATININE 0.5 mg/dL (0.6-1.3)
[2023-01-09 16:35] LABS: CALCIUM, SERUM 8.2 mg/dL (8.5-10.1); CREATININE 0.5 mg/dL (0.6-1.3); MAGNESIUM 2.3 mg/dL (1.8-2.4); PHOSPHORUS 3.5 mg/dL (2.5-4.9); POTASSIUM 4.1 mmol/L (3.5-5.1)
[2023-01-09 16:44] LABS: THYROID STIMULATING HORMONE 1.64 uIU/mL (0.358-3.74); URIC ACID 3.4 mg/dL (2.6-7.2)
[2023-01-09 20:32] VITALS: BP 149/107; TEMP 98.3; O2SAT 98
[2023-01-09] MEDS: TRAZODONE 50 MG TABLET PO SCH (21:08)
[2023-01-10] MEDS: SODIUM CHLORIDE 1000 MG TABLET PO SCH ×2 (08:08→08:23)
[2023-01-10] MEDS: NICOTINE PATCH (14MG) 14 MG PATCH.TD24 TD SCH ×2 (08:08→08:24)
[2023-01-10] MEDS: AMLODIPINE BESYLATE 5 MG TABLET PO SCH ×3 (08:08→09:06)
[2023-01-10] MEDS: OLANZAPINE 10 MG TABLET PO SCH ×4 (08:09→16:06)
[2023-01-10] MEDS: MULTIVITAMINS,THERAGRAN 1 UDTAB TABLET PO SCH ×2 (08:09→08:23)
[2023-01-10] MEDS: ASCORBIC ACID 500 MG TABLET PO SCH ×2 (08:09→08:23)
[2023-01-10] MEDS: GABAPENTIN 300 MG CAPSULE PO SCH ×5 (08:09→16:06)
[2023-01-10] MEDS: DOCUSATE SODIUM 100 MG CAPSULE PO SCH ×2 (08:09→08:22)
[2023-01-10] MEDS: DIVALPROEX SODIUM 500 MG TABLET.DR PO SCH ×5 (08:10→21:02)
[2023-01-10] MEDS: CLONIDINE HCL 0.1MG/24H PTWK 1 EA PATCH TD SCH (09:54)
[2023-01-10 16:00] VITALS: BP 126/72; TEMP 98.4; O2SAT 98
[2023-01-10 20:33] VITALS: BP 134/68; TEMP 98.6; O2SAT 99
[2023-01-10] MEDS: TRAZODONE 50 MG TABLET PO SCH (21:03)
[2023-01-11 06:58] LABS: HEMOGLOBIN 16.3 g/dL (13.5-17.5)
[2023-01-11 07:04] LABS: CALCIUM, SERUM 8.5 mg/dL (8.5-10.1); CREATININE 0.6 mg/dL (0.6-1.3); POTASSIUM 4.2 mmol/L (3.5-5.1)
[2023-01-11 07:21] LABS: BASOPHILS % (AUTO) 0.5 % (0.0-2.0); EOSINOPHILS # (AUTO) 0.1 K/uL (0.0-0.7); EOSINOPHILS % (AUTO) 2.2 % (0.0-6.0); HEMATOCRIT 48 % (39-51); LYMPHOCYTES # (AUTO) 1.4 K/uL (0.8-4.8); LYMPHOCYTES % (AUTO) 23.8 % (20.0-44.0); MEAN CORPUSCULAR HEMOGLOBIN 30 PG (26.0-33.0); MEAN CORPUSCULAR HGB CONC 34 g/dl (31.0-36.0); MEAN CORPUSCULAR VOLUME 88 fL (80-96); MONOCYTES # (AUTO) 0.7 K/uL (0.1-1.30); MONOCYTES % (AUTO) 11.6 % (2.0-12.0); NEUTROPHILS # (AUTO) 3.7 K/uL (1.8-8.9); NEUTROPHILS % (AUTO) 61.9 % (43.0-81.0); PLATELET COUNT (AUTO) 156 K/uL (150-450); RED BLOOD CELL COUNT(AUTO) 5.51 MIL/uL (4.5-6.0); RED CELL DISTRIBUTION WIDTH 15.1 % (11.5-15.0)
[2023-01-11 08:00] VITALS: BP 159/99; TEMP 97.8; O2SAT 94
[2023-01-11] MEDS: DOCUSATE SODIUM 100 MG CAPSULE PO SCH (08:07)
[2023-01-11] MEDS: NICOTINE PATCH (14MG) 14 MG PATCH.TD24 TD SCH ×2 (08:07→08:42)
[2023-01-11] MEDS: ASCORBIC ACID 500 MG TABLET PO SCH (08:07)
[2023-01-11] MEDS: GABAPENTIN 300 MG CAPSULE PO SCH ×3 (08:07→16:39)
[2023-01-11] MEDS: MULTIVITAMINS,THERAGRAN 1 UDTAB TABLET PO SCH (08:07)
[2023-01-11] MEDS: SODIUM CHLORIDE 1000 MG TABLET PO SCH (08:07)
[2023-01-11] MEDS: OLANZAPINE 10 MG TABLET PO SCH ×2 (08:08→16:39)
[2023-01-11] MEDS: DIVALPROEX SODIUM 500 MG TABLET.DR PO SCH ×2 (08:08→21:00)
[2023-01-11] MEDS: AMLODIPINE BESYLATE 5 MG TABLET PO SCH (08:18)
[2023-01-11 20:00] VITALS: BP 148/85; TEMP 97.6; O2SAT 95
[2023-01-11] MEDS: TRAZODONE 50 MG TABLET PO SCH (21:00)
[2023-01-12 08:00] VITALS: BP 129/97; TEMP 98.6; O2SAT 99
[2023-01-12] MEDS: LORAZEPAM 0.5 MG TABLET PO PRN (08:03)
[2023-01-12] MEDS: DOCUSATE SODIUM 100 MG CAPSULE PO SCH (08:33)
[2023-01-12] MEDS: GABAPENTIN 300 MG CAPSULE PO SCH ×3 (08:33→16:21)
[2023-01-12] MEDS: AMLODIPINE BESYLATE 5 MG TABLET PO SCH (08:33)
[2023-01-12] MEDS: MULTIVITAMINS,THERAGRAN 1 UDTAB TABLET PO SCH (08:34)
[2023-01-12] MEDS: OLANZAPINE 10 MG TABLET PO SCH ×2 (08:34→16:21)
[2023-01-12] MEDS: ASCORBIC ACID 500 MG TABLET PO SCH (08:34)
[2023-01-12] MEDS: DIVALPROEX SODIUM 500 MG TABLET.DR PO SCH ×2 (08:34→21:17)
[2023-01-12] MEDS: SODIUM CHLORIDE 1000 MG TABLET PO SCH (08:36)
[2023-01-12] MEDS: NICOTINE PATCH (14MG) 14 MG PATCH.TD24 TD SCH (08:36)
[2023-01-12 12:19] LABS: CALCIUM, SERUM 8.4 mg/dL (8.5-10.1); CREATININE 0.8 mg/dL (0.6-1.3); POTASSIUM 4.3 mmol/L (3.5-5.1)
[2023-01-12 16:00] VITALS: BP 133/88; TEMP 98; O2SAT 100
[2023-01-12 20:00] VITALS: BP 135/91; TEMP 97.5; O2SAT 98
[2023-01-12] MEDS: TRAZODONE 50 MG TABLET PO SCH (21:17)
[2023-01-13] MEDS: GABAPENTIN 300 MG CAPSULE PO SCH ×3 (08:11→16:26)
[2023-01-13] MEDS: OLANZAPINE 10 MG TABLET PO SCH ×2 (08:11→16:26)
[2023-01-13] MEDS: MULTIVITAMINS,THERAGRAN 1 UDTAB TABLET PO SCH (08:11)
[2023-01-13] MEDS: DIVALPROEX SODIUM 500 MG TABLET.DR PO SCH ×2 (08:11→21:16)
[2023-01-13] MEDS: ASCORBIC ACID 500 MG TABLET PO SCH (08:11)
[2023-01-13] MEDS: SODIUM CHLORIDE 1000 MG TABLET PO SCH ×2 (08:11→17:49)
[2023-01-13] MEDS: DOCUSATE SODIUM 100 MG CAPSULE PO SCH (08:11)
[2023-01-13] MEDS: NICOTINE PATCH (14MG) 14 MG PATCH.TD24 TD SCH (08:16)
[2023-01-13] MEDS: LORAZEPAM 0.5 MG TABLET PO PRN (08:38)
[2023-01-13] MEDS: AMLODIPINE BESYLATE 5 MG TABLET PO SCH (09:00)
[2023-01-13] MEDS: TRAZODONE 50 MG TABLET PO SCH (21:17)
[2023-01-14] MEDS: AMLODIPINE BESYLATE 5 MG TABLET PO SCH (08:51)
[2023-01-14] MEDS: ASCORBIC ACID 500 MG TABLET PO SCH (08:55)
[2023-01-14] MEDS: OLANZAPINE 10 MG TABLET PO SCH ×2 (08:55→17:30)
[2023-01-14] MEDS: DIVALPROEX SODIUM 500 MG TABLET.DR PO SCH ×2 (08:55→20:59)
[2023-01-14] MEDS: MULTIVITAMINS,THERAGRAN 1 UDTAB TABLET PO SCH (08:55)
[2023-01-14] MEDS: LORAZEPAM 0.5 MG TABLET PO PRN ×2 (08:55→17:30)
[2023-01-14] MEDS: GABAPENTIN 300 MG CAPSULE PO SCH ×3 (08:56→17:29)
[2023-01-14] MEDS: NICOTINE PATCH (14MG) 14 MG PATCH.TD24 TD SCH (08:56)
[2023-01-14] MEDS: DOCUSATE SODIUM 100 MG CAPSULE PO SCH (08:56)
[2023-01-14] MEDS: SODIUM CHLORIDE 1000 MG TABLET PO SCH ×3 (08:56→17:29)
[2023-01-14 16:00] VITALS: BP 138/90; TEMP 97.8; O2SAT 98
[2023-01-14 17:23] LABS: URINE SODIUM, RANDOM 28 mmol/l (40-220)
[2023-01-14 20:00] VITALS: BP 115/66; TEMP 97.8; O2SAT 97
[2023-01-14] MEDS: TRAZODONE 50 MG TABLET PO SCH (21:00)
[2023-01-15 07:00] LABS: OSMOLALITY,URINE 158 mOS/kg (340-1090)
[2023-01-15 08:00] VITALS: BP 124/84; TEMP 98.7; O2SAT 98
[2023-01-15] MEDS: ASCORBIC ACID 500 MG TABLET PO SCH (08:57)
[2023-01-15] MEDS: GABAPENTIN 300 MG CAPSULE PO SCH ×3 (08:57→17:23)
[2023-01-15] MEDS: MULTIVITAMINS,THERAGRAN 1 UDTAB TABLET PO SCH (08:57)
[2023-01-15] MEDS: DOCUSATE SODIUM 100 MG CAPSULE PO SCH (08:57)
[2023-01-15] MEDS: NICOTINE PATCH (14MG) 14 MG PATCH.TD24 TD SCH (08:57)
[2023-01-15] MEDS: SODIUM CHLORIDE 1000 MG TABLET PO SCH ×4 (08:58→18:18)
[2023-01-15] MEDS: AMLODIPINE BESYLATE 5 MG TABLET PO SCH (08:58)
[2023-01-15] MEDS: DIVALPROEX SODIUM 500 MG TABLET.DR PO SCH ×2 (08:58→21:18)
[2023-01-15] MEDS: OLANZAPINE 10 MG TABLET PO SCH ×2 (08:58→17:24)
[2023-01-15 16:00] VITALS: BP 115/69; TEMP 98.6; O2SAT 97
[2023-01-15 20:34] VITALS: BP 123/74; TEMP 97.9; O2SAT 97
[2023-01-15] MEDS: TRAZODONE 50 MG TABLET PO SCH (21:21)
[2023-01-16 08:00] VITALS: BP 126/95; TEMP 97.8; O2SAT 98
[2023-01-16] MEDS: NICOTINE PATCH (14MG) 14 MG PATCH.TD24 TD SCH (08:19)
[2023-01-16] MEDS: LORAZEPAM 0.5 MG TABLET PO PRN (08:20)
[2023-01-16] MEDS: GABAPENTIN 300 MG CAPSULE PO SCH ×3 (08:20→16:25)
[2023-01-16] MEDS: DOCUSATE SODIUM 100 MG CAPSULE PO SCH (08:20)
[2023-01-16] MEDS: DIVALPROEX SODIUM 500 MG TABLET.DR PO SCH ×2 (08:20→21:17)
[2023-01-16] MEDS: OLANZAPINE 10 MG TABLET PO SCH ×2 (08:20→16:25)
[2023-01-16] MEDS: MULTIVITAMINS,THERAGRAN 1 UDTAB TABLET PO SCH (08:20)
[2023-01-16] MEDS: ASCORBIC ACID 500 MG TABLET PO SCH (08:20)
[2023-01-16] MEDS: SODIUM CHLORIDE 1000 MG TABLET PO SCH ×3 (08:20→17:45)
[2023-01-16] MEDS: AMLODIPINE BESYLATE 5 MG TABLET PO SCH (08:20)
[2023-01-16 16:04] VITALS: BP 115/90; TEMP 97.8; O2SAT 98
[2023-01-16 20:00] VITALS: BP 110/64; TEMP 98.6; O2SAT 98
[2023-01-16] MEDS: TRAZODONE 50 MG TABLET PO SCH (21:18)
[2023-01-17 08:00] VITALS: BP 115/79; TEMP 98.6; O2SAT 98
[2023-01-17] MEDS: SODIUM CHLORIDE 1000 MG TABLET PO SCH ×4 (08:00→17:09)
[2023-01-17] MEDS: NICOTINE PATCH (14MG) 14 MG PATCH.TD24 TD SCH ×2 (08:50→09:00)
[2023-01-17] MEDS: DOCUSATE SODIUM 100 MG CAPSULE PO SCH (08:50)
[2023-01-17] MEDS: DIVALPROEX SODIUM 500 MG TABLET.DR PO SCH ×2 (08:51→21:03)
[2023-01-17] MEDS: ASCORBIC ACID 500 MG TABLET PO SCH ×2 (08:51→09:00)
[2023-01-17] MEDS: AMLODIPINE BESYLATE 5 MG TABLET PO SCH ×2 (08:51→09:00)
[2023-01-17] MEDS: MULTIVITAMINS,THERAGRAN 1 UDTAB TABLET PO SCH ×2 (08:51→09:00)
[2023-01-17] MEDS: OLANZAPINE 10 MG TABLET PO SCH ×2 (08:51→16:35)
[2023-01-17] MEDS: GABAPENTIN 300 MG CAPSULE PO SCH ×3 (08:51→16:35)
[2023-01-17] MEDS: CLONIDINE HCL 0.1MG/24H PTWK 1 EA PATCH TD SCH (09:30)
[2023-01-17 15:17] LABS: BASOPHILS # (AUTO) 0.1 K/uL (0.0-0.2); BASOPHILS % (AUTO) 0.8 % (0.0-2.0); EOSINOPHILS # (AUTO) 0.1 K/uL (0.0-0.7); EOSINOPHILS % (AUTO) 1.5 % (0.0-6.0); HEMATOCRIT 50 % (39-51); LYMPHOCYTES # (AUTO) 1.4 K/uL (0.8-4.8); LYMPHOCYTES % (AUTO) 21.3 % (20.0-44.0); MEAN CORPUSCULAR HEMOGLOBIN 30 PG (26.0-33.0); MEAN CORPUSCULAR HGB CONC 34 g/dl (31.0-36.0); MEAN CORPUSCULAR VOLUME 88 fL (80-96); MONOCYTES # (AUTO) 0.6 K/uL (0.1-1.30); MONOCYTES % (AUTO) 9.1 % (2.0-12.0); NEUTROPHILS # (AUTO) 4.4 K/uL (1.8-8.9); NEUTROPHILS % (AUTO) 67.3 % (43.0-81.0); PLATELET COUNT (AUTO) 158 K/uL (150-450); RED BLOOD CELL COUNT(AUTO) 5.74 MIL/uL (4.5-6.0); RED CELL DISTRIBUTION WIDTH 14.5 % (11.5-15.0); WHITE BLOOD COUNT (AUTO) 6.5 K/uL (4.3-11.0)
[2023-01-17 15:33] LABS: CALCIUM, SERUM 8.6 mg/dL (8.5-10.1); CREATININE 0.8 mg/dL (0.6-1.3); MAGNESIUM 1.9 mg/dL (1.8-2.4); PHOSPHORUS 3.2 mg/dL (2.5-4.9); POTASSIUM 3.9 mmol/L (3.5-5.1); URIC ACID 4.4 mg/dL (2.6-7.2)
[2023-01-17 16:00] VITALS: BP 126/73; TEMP 98; O2SAT 98
[2023-01-17 20:15] VITALS: BP 111/69; TEMP 97.7; O2SAT 97
[2023-01-17] MEDS: TRAZODONE 50 MG TABLET PO SCH (21:03)
[2023-01-18 08:00] VITALS: BP 140/72; TEMP 97.8; O2SAT 98
[2023-01-18] MEDS: SODIUM CHLORIDE 1000 MG TABLET PO SCH ×3 (08:25→17:42)
[2023-01-18] MEDS: DOCUSATE SODIUM 100 MG CAPSULE PO SCH (08:25)
[2023-01-18] MEDS: AMLODIPINE BESYLATE 5 MG TABLET PO SCH (08:25)
[2023-01-18] MEDS: OLANZAPINE 10 MG TABLET PO SCH ×2 (08:26→16:22)
[2023-01-18] MEDS: GABAPENTIN 300 MG CAPSULE PO SCH ×3 (08:26→16:22)
[2023-01-18] MEDS: MULTIVITAMINS,THERAGRAN 1 UDTAB TABLET PO SCH (08:26)
[2023-01-18] MEDS: DIVALPROEX SODIUM 500 MG TABLET.DR PO SCH ×2 (08:26→21:22)
[2023-01-18] MEDS: ASCORBIC ACID 500 MG TABLET PO SCH (08:26)
[2023-01-18] MEDS: NICOTINE PATCH (14MG) 14 MG PATCH.TD24 TD SCH (09:00)
[2023-01-18 16:00] VITALS: BP 125/71; TEMP 98.1; O2SAT 98
[2023-01-18 20:00] VITALS: BP 133/69; TEMP 97.5; O2SAT 98
[2023-01-18] MEDS: TRAZODONE 50 MG TABLET PO SCH (21:22)
[2023-01-19 08:00] VITALS: BP_SYST 129; BP_SYST 139; BP_DIAS 99; TEMP 97.9; O2SAT 97
[2023-01-19] MEDS: MULTIVITAMINS,THERAGRAN 1 UDTAB TABLET PO SCH (08:35)
[2023-01-19 08:36] VITALS: BP 129/99
[2023-01-19] MEDS: DOCUSATE SODIUM 100 MG CAPSULE PO SCH (08:36)
[2023-01-19] MEDS: ASCORBIC ACID 500 MG TABLET PO SCH (08:36)
[2023-01-19] MEDS: GABAPENTIN 300 MG CAPSULE PO SCH ×2 (08:36→12:50)
[2023-01-19] MEDS: SODIUM CHLORIDE 1000 MG TABLET PO SCH ×2 (08:36→12:50)
[2023-01-19] MEDS: OLANZAPINE 10 MG TABLET PO SCH (08:36)
[2023-01-19] MEDS: AMLODIPINE BESYLATE 5 MG TABLET PO SCH (08:36)
[2023-01-19] MEDS: DIVALPROEX SODIUM 500 MG TABLET.DR PO SCH (08:38)
[2023-01-19] MEDS: NICOTINE PATCH (14MG) 14 MG PATCH.TD24 TD SCH (09:00)
== END 2023-01-19 13:50 | DRG 885 ==
LOC: ER 14:46 → GPS 20:34
PROVIDERS: ADMIT Psychiatry & Neurology Psychiatry; ATTEND Nurse Practitioner Acute Care
DX: F25.0 Schizoaffective disorder, bipolar type (principal); G93.41 Metabolic encephalopathy; F03.93 Unspecified dementia, unspecified severity, with mood disturbance; F03.92 Unspecified dementia, unspecified severity, with psychotic disturbance; F03.94 Unspecified dementia, unspecified severity, with anxiety; E22.2 Syndrome of inappropriate secretion of antidiuretic hormone; F29 Unspecified psychosis not due to a substance or known physiological condition; J44.9 Chronic obstructive pulmonary disease, unspecified; Z20.822 Contact with and (suspected) exposure to COVID-19; I10 Essential (primary) hypertension; G62.9 Polyneuropathy, unspecified; Z79.899 Other long term (current) drug therapy; F41.9 Anxiety disorder, unspecified; F32.A Depression, unspecified; F17.210 Nicotine dependence, cigarettes, uncomplicated; Z91.199 Patient's noncompliance with other medical treatment and regimen due to unspecified reason; Z91.81 History of falling; F39 Unspecified mood [affective] disorder; R63.1 Polydipsia
CPT/HCPCS: 36415; 80048-TC; 80061-TC; 80076-TC; 80164-TC; 82533; 82565-TC; 82962-TC; 83735-TC; 83935-TC; 84100-TC; 84300-TC; 84443-TC; 84550-TC; 85025-TC; 87081-TC; C9803; G0480; J7030